=== PATIENT | male | born 1930 | race Caucasian/White ===

== ENCOUNTER 2017-04-06 07:58 | Inpatient (IN) | payer MEDICARE ==
[~2017-04-06] VITALS: Ht 182.9 cm; Wt 80.4 kg
[2017-04-06] MEDS ORDERED: SERT25TA PO (08:29)
[2017-04-06] MEDS ORDERED: AMLO5TAB2 PO (08:29)
[2017-04-06] MEDS ORDERED: ATOR40TA75 PO (08:29)
[2017-04-06] MEDS ORDERED: METF850T4 PO (08:29)
[2017-04-06] MEDS ORDERED: ARTISOL2 OP (08:29)
[2017-04-06] MEDS ORDERED: FLOM5CAP PO (08:29)
[2017-04-06] MEDS ORDERED: [UNRECOGNIZED DRUG - OTHER] PO (08:29)
[2017-04-06] MEDS ORDERED: OMEP40CA2 PO (08:29)
[2017-04-06] MEDS ORDERED: ARTIDRO3 OP (08:29)
[2017-04-06] MEDS ORDERED: ATOR1TAB19 PO (08:31)
[2017-04-06] MEDS ORDERED: ONGL10TA3 PO (08:34)
[2017-04-06] MEDS ORDERED: GLIP10TA6 PO (08:34)
[2017-04-06 08:41] LABS: BASO % 0.1 % (0.0-1.0); EOS # 0.1 K/mm3 (0.0-0.50); EOS % 1.3 % (0.0-3.0); LARGE UNSTAINED CELL # 0.1 K/mm3 (0.0-0.4); LARGE UNSTAINED CELL % 0.6 % (0.0-4.0); LYMPH # 0.5 K/mm3 (1.5-4.5); LYMPH % 4.9 % (24.0-44.0); MEAN CORPUSCULAR HEMOGLOBIN 30.1 pg (27.0-33.0); MEAN CORPUSCULAR HGB CONC 32.2 g/dl (32.0-36.5); MEAN CORPUSCULAR VOLUME 93.6 fl (80.0-96.0); MONO # 0.3 K/mm3 (0.0-0.8); MONO % 3.4 % (0.0-5.0); NEUTROPHILS # 8.3 K/mm3 (1.8-7.7); NEUTROPHILS % 89.7 % (36.0-66.0); PLATELET COUNT, AUTOMATED 169 k/mm3 (150-450); RED CELL DISTRIBUTION WIDTH 13.4 % (11.5-14.5); WHITE BLOOD COUNT 9.3 K/mm3 (4.0-10.0)
[2017-04-06] MEDS ORDERED: methylPREDNISolone INJ 125 MG/2 ML VIAL (J2930) IV ONE (08:45)
[2017-04-06] MEDS ORDERED: ALBUTEROL SULFATE 2.5 MG/0.5 ML INH NEB SOLN INH ONE (08:45)
[2017-04-06] MEDS ORDERED: IPRATROPIUM 0.5MG/ALBUTEROL 2.5MG INH SOL UD 3ML (DUONEB)(J7620) NEB ONE (08:45)
[2017-04-06] MEDS: ENOXAPARIN 40 MG/0.4 ML SYRINGE (J1650) SC SCH (09:00)
[2017-04-06] MEDS: SENOKOT S TAB PO SCH ×2 (09:00→21:08)
[2017-04-06 09:02] LABS: ALKALINE PHOSPHATASE 91 U/L (45-117); ALT/SGPT 21 U/L (12-78); AST/SGOT 16 U/L (15-37); BILIRUBIN,DIRECT 0.2 MG/DL (0.0-0.2); BILIRUBIN,TOTAL 0.6 MG/DL (0.2-1.0); BLOOD UREA NITROGEN 26 MG/DL (7-18); CALCIUM LEVEL 7.3 MG/DL (8.8-10.2); CARBON DIOXIDE LEVEL 24 MEQ/L (21-32); CHLORIDE LEVEL 107 MEQ/L (98-107); CREATININE FOR GFR 1.53 MG/DL (0.70-1.30); FREE T4 0.88 NG/DL (0.76-1.46); GLUCOSE, FASTING 257 MG/DL (83-110); POTASSIUM SERUM 4.3 MEQ/L (3.5-5.1); TOTAL PROTEIN 6.9 GM/DL (6.4-8.2)
[2017-04-06 09:08] LABS: ABG BASE EXCESS -3.1 (-2.0-2.0); ABG HCO3 21.6 MEQ/L (22.0-26.0); ABG PARTIAL PRESSURE CO2 37.2 mmHg (35.0-45.0); ABG PARTIAL PRESSURE O2 80.1 mmHg (75.0-100.0); ABG STANDARD HCO3 21.8 MEQ/L (22.0-26.0); ABG TOTAL CO2 22.8 MEQ/L (23.0-31.0); ABG pH (ARTERIAL) 7.382 UNITS (7.350-7.450)
--- NOTE | 2017-04-06 09:09 | REP ---
Clinical: Chest pain . Comparison: 01/30/2015 . Findings: The mediastinum and cardiac silhouette are stable and within normal limits for portable technique. The lung martinez are clear without acute consolidation, effusion, or pneumothorax. Skeletal structures are intact. Impression: No acute cardiopulmonary process appreciated. Signed by Easton Ba MD 04/06/2017 09:00 A
[2017-04-06 09:15] LABS: INR 1.09
[2017-04-06] MEDS ORDERED: FUROSEMIDE 20 MG/2 ML VIAL (J1940) IV ONE (09:30)
[2017-04-06 09:53] LABS: ANION GAP 11 MEQ/L (8-16); SODIUM LEVEL 142 MEQ/L (136-145)
[2017-04-06 09:54] LABS: ALBUMIN 3.3 GM/DL (3.2-5.2); ALBUMIN/GLOBULIN RATIO 0.92 (1.00-1.93)
[2017-04-06] MEDS ORDERED: ONDANSETRON 4MG/2ML VIAL (J2405) IV PRN (10:00)
[2017-04-06] MEDS ORDERED: FUROSEMIDE 40 MG/4 ML VIAL (J1940) IV ONE (10:00)
[2017-04-06] MEDS ORDERED: RAMI10CA PO (10:05)
[2017-04-06] MEDS ORDERED: VITA100066 PO (10:05)
[2017-04-06] MEDS ORDERED: ARTI99.0 OU (10:05)
[2017-04-06] MEDS ORDERED: AMLO10TA2 PO (10:05)
[2017-04-06] MEDS ORDERED: OMEP20CA3 PO (10:05)
[2017-04-06] MEDS ORDERED: ATOR1TAB21 PO (10:05)
[2017-04-06] MEDS ORDERED: SERT50TA PO (10:05)
[2017-04-06] MEDS ORDERED: PRESCAP6 PO (10:05)
[2017-04-06] MEDS ORDERED: METF750T PO (10:11)
[2017-04-06] MEDS ORDERED: GLUCOSE 4 GM CHEW TABLET PO PRN (13:45)
[2017-04-06] MEDS ORDERED: GLUCAGON FOR INJ 1 MG VIAL (J1610) SC PRN (13:45)
[2017-04-06] MEDS ORDERED: DEXTROSE 50% 50 ML SYRINGE IV PRN (13:45)
[2017-04-06 14:00] VITALS: BP 199/95
[2017-04-06 14:25] VITALS: BP 163/77
[2017-04-06] MEDS: FUROSEMIDE 40 MG/4 ML VIAL (J1940) IV SCH (16:10)
--- NOTE | 2017-04-06 16:13 | HPE ---
DATE OF ADMISSION: 04/06/2017 PRIMARY CARE PROVIDER: 's Administration, Dr. Ryder CHIEF COMPLAINT: Shortness of breath for one day, chest tightness once last night and increasing leg swelling for 2 weeks. PAST MEDICAL HISTORY: 1. Diabetes. 2. Hypertension. 3. Hyperlipidemia. 4. Chronic kidney disease stage III. 5. Coronary artery disease with history of myocardial infarction in the past. 6. Benign prostatic hypertrophy (BPH). HISTORY OF PRESENT ILLNESS: This is an 86-year-old male who presented to the hospital with slowing increasing leg swelling for over the past two weeks and sudden onset shortness of breath for 1 day. He also complained of one episode of chest pressure, which lasted for a few minutes and then resolved by itself last night. He denied any cough. Denied any dizziness or lightheadedness. Denied any diaphoresis. Denied any nausea or vomiting or abdominal pain. He did complain also of some intermittent palpitations, but this morning he did not have any further palpitations. In the emergency room, he had blood work done, which showed that he has chronic kidney disease with a baseline creatinine of 1.5. He was also noted to be anemic with a hemoglobin of 9. Initially on presentation, he was wheezing and short of breath so he received nebulizers and steroids with improvement in his symptoms. He also received 60 mg of IV Lasix in the emergency room. His chest x-ray showed mild pulmonary venous congestion, so the patient was admitted to the hospitalist service with the diagnosis of congestive heart failure (CHF). PAST SURGICAL HISTORY: Right inguinal hernia repair. SOCIAL HISTORY: The patient is a former smoker. Does not abuse alcohol or recreational drugs. The patient lives with a friend. Used to live in [facility] for three years and for the past 1 month living with a friend. ALLERGIES: ASPIRIN, PENICILLIN. REVIEW OF SYSTEMS: All ten-point review of systems is negative except for those mentioned in the history of present illness. PHYSICAL EXAMINATION: VITAL SIGNS: Temperature 98.3, pulse 82, respiratory rate 27, blood pressure 184/94, pulse oximetry 92% with 2 liters nasal cannula. GENERAL: The patient is awake, alert, oriented times three. Lying down in bed. In no acute distress. HEENT: Normocephalic, atraumatic. Moist mucous membranes. Anicteric eyes. CHEST: Clear to auscultation. CARDIOVASCULAR: S1, S2. Irregular. Rate normal. No rub, murmur or gallop. ABDOMEN: Soft, nontender. Bowel sounds present. EXTREMITIES: 4+ right pedal edema. LABORATORY DATA: WBC 9.3, hemoglobin 9, platelets 169. Sodium 142, potassium 4.3, chloride 107, bicarbonate 24, BUN 26, creatinine 1.53, glucose 257, calcium 7.3. Liver function tests are normal. Cardiac enzymes show troponin of 0.45. BNP 229. TSH of 5.16. Coagulation studies are normal. Blood gas shows a pH of 7.38, PCO2 of 37, PO2 80. ASSESSMENT AND PLAN: This is an 86-year-old male admitted for possible congestive heart failure (CHF). PLAN: 1. Congestive heart failure (CHF). We will get echocardiogram. We will start the patient on Lasix IV twice a day, oxygen to maintain saturations over 90 with a carbohydrate consistent diet and with fluid restriction of 1.5 liters, daily weights, and intake and output monitoring. 2. Diabetes. We will continue the patient on glipizide; however, we will hold metformin and start the patient on sliding scale insulin. 3. Hypertension. We will continue the patient on ramipril and amlodipine. 4. Hyperlipidemia. We will continue with atorvastatin. 5. Benign prostatic hypertrophy (BPH) . We will continue with Flomax. 6. Chronic kidney disease stage III. We will continue to monitor. BUN and creatinine, at present, look stable. 7. New onset atrial fibrillation. Rate is controlled at this point. We will get an echocardiogram. We will start the patient on oral anticoagulants after discussion. 8. Deep vein thrombosis (DVT) prophylaxis has been ordered.
[2017-04-06] MEDS ORDERED: amLODIPine 5 MG TAB PO ONE (16:15)
[2017-04-06] MEDS ORDERED: RAMIPRIL 5 MG CAP PO ONE (16:15)
[2017-04-06] MEDS: HumaLOG INSULIN (NovoLOG) PER UNIT SC SCH ×2 (16:47→21:08)
[2017-04-06 17:33] VITALS: BP 172/74
--- NOTE | 2017-04-06 19:34 | ECGEPIP ---
Stationary ECG Study 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
[2017-04-06 20:28] VITALS: BP 150/58
[2017-04-06] MEDS: TAMSULOSIN 0.4 MG CAP PO SCH (21:07)
[2017-04-06 23:59] VITALS: BP 138/62
[2017-04-07] VITALS (9 sets, daily range): BP systolic 126–187; BP diastolic 60–86
[2017-04-07 05:18] LABS: BASO % 0.1 % (0.0-1.0); EOS % 0.4 % (0.0-3.0); LARGE UNSTAINED CELL # 0.1 K/mm3 (0.0-0.4); LARGE UNSTAINED CELL % 0.5 % (0.0-4.0); LYMPH # 0.7 K/mm3 (1.5-4.5); LYMPH % 5.5 % (24.0-44.0); MEAN CORPUSCULAR HGB CONC 32.8 g/dl (32.0-36.5); MEAN CORPUSCULAR VOLUME 91.4 fl (80.0-96.0); MONO # 0.4 K/mm3 (0.0-0.8); MONO % 3.2 % (0.0-5.0); NEUTROPHILS # 10.7 K/mm3 (1.8-7.7); NEUTROPHILS % 90.4 % (36.0-66.0); PLATELET COUNT, AUTOMATED 159 k/mm3 (150-450); RED CELL DISTRIBUTION WIDTH 13.6 % (11.5-14.5); WHITE BLOOD COUNT 11.8 K/mm3 (4.0-10.0)
[2017-04-07 05:34] LABS: CALCIUM LEVEL 7.8 MG/DL (8.8-10.2); CREATININE FOR GFR 1.64 MG/DL (0.70-1.30); GLOMERULAR FILTRATION RATE 42.4 (>35); POTASSIUM SERUM 4.4 MEQ/L (3.5-5.1)
[2017-04-07] MEDS ORDERED: amLODIPine 10 MG TAB PO ONE (06:15)
[2017-04-07] MEDS ORDERED: amLODIPine 5 MG TAB PO ONE (06:26)
[2017-04-07] MEDS: HumaLOG INSULIN (NovoLOG) PER UNIT SC SCH ×4 (07:36→20:51)
[2017-04-07] MEDS ORDERED: RAMIPRIL 5 MG CAP PO SCH (09:00)
[2017-04-07] MEDS: glipiZIDE 10 MG TAB PO SCH (09:33)
[2017-04-07] MEDS: ATORVASTATIN 20 MG TAB PO SCH (09:33)
[2017-04-07] MEDS: SENOKOT S TAB PO SCH ×2 (09:34→20:48)
[2017-04-07] MEDS: SERTRALINE HCL 50 MG TAB PO SCH (09:34)
[2017-04-07] MEDS: OMEPRAZOLE 20 MG CAP PO SCH (09:34)
[2017-04-07] MEDS: FUROSEMIDE 40 MG/4 ML VIAL (J1940) IV SCH (09:35)
[2017-04-07] MEDS: ENOXAPARIN 40 MG/0.4 ML SYRINGE (J1650) SC SCH (09:35)
--- NOTE | 2017-04-07 11:54 | IPNPDOC ---
Subjective Date Seen The patient was seen on 04/07/17. Subjective Chief Complaint/HPI The patient is a 86-year-old male admitted with a reason for visit of Atrial Fibrillation New Onset,Chf. 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 Objective Physical Examination General Exam: Positive: Alert, Cooperative, No Acute Distress Eye Exam: Positive: PERRLA, Conjunctiva & lids normal, EOMI, Negative: Sclera icteric ENT Exam: Positive: Atraumatic, Mucous membr. moist/pink, Pharynx Normal Neck Exam: Positive: Supple, Negative: JVD, thyromegaly Chest Exam: Positive: Clear to auscultation, Normal air movement Heart Exam: Positive: Rate Normal, Irregular Rhythm, Normal S1, Normal S2 Telemetry: Positive: Atrial fibrillation Abdomen Exam: Positive: Normal bowel sounds, Soft, Negative: Tenderness, Hepatospenomegaly Extremity Exam: Positive: Edema, Negative: Clubbing, Cyanosis, Normal pulses, Tenderness, Swelling, Other Assessment /Plan Problems (1) Congestive heart failure Status: Acute Problem Text: will get echo. will continue with iv lasix , fluid restriction and i/os. (2) Atrial fibrillation, new onset Status: Acute Problem Text: rate controlled will get new ekg consider oral anticoagulation . patient thinking about it. (3) Elevated troponin Status: Acute Problem Text: possibly due to chf, afib and ckd will repeat ekg (4) BPH (benign prostatic hyperplasia) Status: Chronic (5) Hyperlipidemia Status: Chronic (6) Hypertension Status: Chronic (7) Diabetes Status: Chronic (8) CKD (chronic kidney disease), stage III Status: Chronic (9) CAD (coronary artery disease) Status: Chronic (10) Anemia Status: Acute Problem Text: will check iron studies, folate , b 12. will check fecal occult blood and spep and esr possible also has anemia of chronic disease. Plan/VTE VTE Prophylaxis Ordered?: Yes VS, I&O, 24H, Fishbone Vital Signs/I&O Vital Signs Date Time Temp Pulse Resp B/P (MAP) Pulse Ox O2 Delivery O2 Flow Rate FiO2 04/07/17 08:00 98.5 66 18 164/76 (105) 97 Nasal Cannula 2.0 04/06/17 08:40 96 I&O- Last 24 Hours up to 6 AM 04/07/17 06:00 Intake Total 780 ml Output Total 450 ml Balance 330 ml Laboratory Data 24H LABS Laboratory Tests 2 04/06/17 16:05: Total Creatine Kinase 229, Creatine Kinase MB 6.3H, Creatine Kinase MB Relative Index 2.75, Troponin I 0.44H 04/07/17 00:07: Total Creatine Kinase 240, Creatine Kinase MB 6.8H, Creatine Kinase MB Relative Index 2.83, Troponin I 0.42H 04/07/17 04:41: White Blood Count 11.8H, Red Blood Count 2.83L, Hemoglobin 8.5L, Hematocrit 25.8L, Mean Corpuscular Volume 91.4, Mean Corpuscular Hemoglobin 30.0, Mean Corpuscular Hemoglobin Concent 32.8, Red Cell Distribution Width 13.6, Platelet Count 159, Neutrophils (%) (Auto) 90.4H, Lymphocytes (%) (Auto) 5.5L, Monocytes (%) (Auto) 3.2, Eosinophils (%) (Auto) 0.4, Basophils (%) (Auto) 0.1, Neutrophils # (Auto) 10.7H, Lymphocytes # (Auto) 0.7L, Monocytes # (Auto) 0.4, Eosinophils # (Auto) 0.0, Basophils # (Auto) 0.0, Large Unclassified Cells % 0.5 , Large Unclassified Cells # 0.1, Anion Gap 9, Glomerular Filtration Rate 42.4, Blood Urea Nitrogen 36H, Creatinine 1.64H, Sodium Level 143, Potassium Level 4.4 , Chloride Level 106, Carbon Dioxide Level 28, Calcium Level 7.8L 04/07/17 07:58: Total Creatine Kinase 248, Creatine Kinase MB 6.0H, Creatine Kinase MB Relative Index 2.41, Troponin I 0.39H CBC/BMP Laboratory Tests 04/07/17 04:41 Red Blood Count 2.83 L, Mean Corpuscular Volume 91.4, Mean Corpuscular Hemoglobin 30.0, Mean Corpuscular Hemoglobin Concent 32.8, Red Cell Distribution Width 13.6, Neutrophils (%) (Auto) 90.4 H, Lymphocytes (%) (Auto) 5.5 L, Monocytes (%) (Auto) 3.2, Eosinophils (%) (Auto) 0.4, Basophils (%) (Auto ) 0.1, Neutrophils # (Auto) 10.7 H, Lymphocytes # (Auto) 0.7 L, Monocytes # ( Auto) 0.4, Eosinophils # (Auto) 0.0, Basophils # (Auto) 0.0, Calcium Level 7.8 L Microbiology Microbiology 04/06/17 Blood Culture - Preliminary, Resulted No growth after 24 hours . All specim... 04/06/17 Blood Culture - Preliminary, Resulted No growth after 24 hours . All specim... JAMES MCCLOUD MD Apr 07, 2017 11:54
[2017-04-07 12:18] LABS: FERRITIN 181 NG/ML (26-388); PERCENT SATURATION 14.3 % (19.7-50.0); TOTAL IRON BINDING CAPACITY 245 UG/DL (250-450); TOTAL PROTEIN 6.4 GM/DL (6.4-8.2)
--- NOTE | 2017-04-07 13:36 | ECGEPIP ---
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 Rule out prior septal injury. Nonspecific ST/T-wave abnormalities. Not significantly changed from the previous day. Electronically Signed On 04-07-2017 13:36:41 EDT by Royer Meek
--- NOTE | 2017-04-07 13:45 | ECGEPIP ---
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 Isolated wider complex ventricular beat-PVCs versus aberrant conduction. Slow precordial R-wave progression; body habitus versus pulmonary disease. Rule out prior septal injury. Nonspecific ST/T-wave abnormalities No change from earlier this same day. Electronically Signed On 04-07-2017 13:45:09 EDT by Royer Meek
[2017-04-07] MEDS: TAMSULOSIN 0.4 MG CAP PO SCH (20:48)
[2017-04-07] MEDS: amLODIPine 5 MG TAB PO SCH (20:48)
[2017-04-08 04:00] VITALS: BP 170/66
[2017-04-08 05:19] VITALS: BP 152/62
[2017-04-08 05:44] LABS: BASO % 0.2 % (0.0-1.0); EOS # 0.2 K/mm3 (0.0-0.50); LARGE UNSTAINED CELL # 0.1 K/mm3 (0.0-0.4); LARGE UNSTAINED CELL % 1.2 % (0.0-4.0); LYMPH # 1.4 K/mm3 (1.5-4.5); LYMPH % 15.1 % (24.0-44.0); MEAN CORPUSCULAR HEMOGLOBIN 30.9 pg (27.0-33.0); MEAN CORPUSCULAR HGB CONC 33.2 g/dl (32.0-36.5); MEAN CORPUSCULAR VOLUME 93.3 fl (80.0-96.0); MONO # 0.5 K/mm3 (0.0-0.8); MONO % 4.9 % (0.0-5.0); NEUTROPHILS # 6.9 K/mm3 (1.8-7.7); NEUTROPHILS % 76.5 % (36.0-66.0); PLATELET COUNT, AUTOMATED 164 k/mm3 (150-450); RED CELL DISTRIBUTION WIDTH 13.5 % (11.5-14.5)
[2017-04-08 05:56] LABS: CALCIUM LEVEL 7.8 MG/DL (8.8-10.2); CREATININE FOR GFR 1.69 MG/DL (0.70-1.30); MAGNESIUM LEVEL 1.3 MG/DL (1.8-2.4); POTASSIUM SERUM 3.8 MEQ/L (3.5-5.1)
[2017-04-08] MEDS: MAG SULF 1GM/100ML (MAG RUN) 1 GM in APPROPRIATE DILUENT 1 EA IV SCH ×2 (06:37→07:47)
[2017-04-08 07:15] VITALS: BP 150/80
[2017-04-08 07:35] LABS: REASON FOR REVIEW COMPREHENSIVE REVIEW
[2017-04-08 07:38] LABS: RETIC HEMOGLOBIN CONTENT CHr 29.8 PG (24-36); RETICULOCYTE ABSOLUTE ADVIA212 57 x10(9)/L (17-77)
--- NOTE | 2017-04-08 07:41 | ECHO ---
DATE OF PROCEDURE: 04/07/2017 HEIGHT: 72 inches WEIGHT: 179 pounds BODY SURFACE AREA : 2.0 meters squared REFERRING PHYSICIAN: Dr. Charles. INDICATIONS: Congestive heart failure (CHF). Atrial fibrillation. MEASUREMENTS: 2D Measurements: RV - 4.6 cm LV - 5.3 cm Septum - 1.2 cm Posterior wall - 1.2 cm Aortic root 3.1 - cm LA - 5.1 cm LVEF - 65% Doppler Measurements: AV - 1.5 meters per second LVOT - 1.1 meters per second MV-E - 150 Early mitral deceleration time - 150 E prime 7.3, E/E prime ratio - 20.5 PV - 1.0 meters per second Pulmonary artery acceleration time - 98 milliseconds RVSP - 70 mmHg IVC - 2.4 cm COMMENTS: Underlying atrial fibrillation with controlled ventricular response. Prominently dilated left atrium but normal left ventricular size. Moderately dilated right ventricle and prominently dilated right atrium. LV wall thickness was upper limits of normal to borderline increased. On real-time imaging from the parasternal and projections left ventricular wall motion was symmetrical and hyperkinetic. Right ventricular wall motion appeared to be normal. Mitral annular calcification with marginal thickening of the mitral leaflets but adequate leaflet excursion and no posterior systolic buckling. Three equal size aortic cusps with mildly thickened cusp edges but adequate cusp separation. Normal aortic root size. No apparent intracardiac mass or pericardial effusion. Color flow Doppler study taken from the parasternal and apical projection showed trace aortic, moderate mitral and moderately severe and tricuspid insufficiency. Guided continuous wave Doppler of his aortic valve showed a normal peak systolic velocity against LV outflow tract obstruction. Pulsed and continuous wave Doppler of his LV inflow tract taken for the apical four-chamber projection showed normal diastolic filling velocities against LV inflow tract obstruction. There was only early diastolic/passive filling pattern as you would expect with atrial fibrillation. Current estimated mean left atrial pressure was elevated. Pulsed and continuous wave Doppler of his pulmonary trunk showed a normal peak systolic velocity against RV outflow tract obstruction. His pulmonary artery acceleration time was abbreviated consistent with a least mildly elevated pulmonary vascular resistance. Guided continuous wave Doppler of his tricuspid valve allowed our estimation of his right ventricular systolic pressure (severely increased). His inferior vena cava was at least mild to moderately dilated with markedly reduced respiratory collapse consistent with an elevated central venous pressure. CONCLUSIONS: Borderline concentric left ventricle hypertrophy with preserved global resting left ventricular systolic function. No localized wall motion abnormality to suggest prior infarction. Prominently dilated left atrium with Doppler evidence to suggest an elevated mean left atrial pressure. Moderately dilated right heart chambers with normal wall motion with Doppler evidence of severe pulmonary hypertension. Mild to moderately dilated inferior vena cava with absent respiratory collapse consistent with an elevated central venous pressure. Aortic valvular sclerosis without stenosis and only trace insufficiency. Mitral annular calcification and degenerative change of the mitral valvular apparatus without inflow tract obstruction but moderate insufficiency.
[2017-04-08] MEDS: HumaLOG INSULIN (NovoLOG) PER UNIT SC SCH ×4 (07:48→20:39)
[2017-04-08] MEDS: SENOKOT S TAB PO SCH ×2 (08:52→20:38)
[2017-04-08] MEDS: OMEPRAZOLE 20 MG CAP PO SCH (08:52)
[2017-04-08] MEDS: amLODIPine 5 MG TAB PO SCH ×2 (08:52→20:39)
[2017-04-08] MEDS: ATORVASTATIN 20 MG TAB PO SCH (08:52)
[2017-04-08] MEDS: SERTRALINE HCL 50 MG TAB PO SCH (08:52)
[2017-04-08] MEDS: glipiZIDE 10 MG TAB PO SCH (08:52)
[2017-04-08] MEDS: FUROSEMIDE 40 MG/4 ML VIAL (J1940) IV SCH (08:53)
[2017-04-08] MEDS: ENOXAPARIN 40 MG/0.4 ML SYRINGE (J1650) SC SCH (08:53)
[2017-04-08] MEDS ORDERED: amLODIPine 10 MG TAB PO SCH (09:00)
--- NOTE | 2017-04-08 10:36 | IPNPDOC ---
Date Seen The patient was seen on 04/08/17. Progress Note SUBJECTIVE: Patient is a 86-year-old male with new onset atrial fibrillation and CHF exacerbation. Patient states that he is doing better today. He reports ambulation to the restroom. No acute events overnight. Patient states that he had a prior bleeding episode when on anticoagulation "a long time ago." Reports a nosebleed, but no hemoptysis, hematemesis, melena, hematochezia. OBJECTIVE PHYSICAL EXAMINATION: VITAL SIGNS: Please see below. GENERAL: Alert and pleasant male laying in bed during my evaluation, no acute distress HEENT: Atraumatic, normocephalic, PERRL, EOMI, oral mucosa appears pink and moist, nasal septum appears midline, nares are patent CARDIOVASCULAR: Irregularly irregular heart rate and rhythm, normal S1 and S2, no murmur, rub, click RESPIRATORY: Clear to auscultation bilaterally, adequate inspiratory and expiratory airway excursion, no wheeze, rhonchi, crackles ABDOMINAL: Soft, non-tender, non-distended, bowel sounds appreciated EXTREMITIES: +1 pitting edema noted around the ankles bilaterally, peripheral pulses appreciated bilaterally, equal, symmetrical, +2/4 NEUROLOGICAL: CN II-XII grossly intact PSYCHOLOGICAL: Alert and conversant LABORATORY DATA: Please see below. MICROBIOLOGY: Please see below. Echocardiogram: CONCLUSIONS: Borderline concentric left ventricle hypertrophy with preserved global resting left ventricular systolic function. No localized wall motion abnormality to suggest prior infarction. Prominently dilated left atrium with Doppler evidence to suggest an elevated mean left atrial pressure. Moderately dilated right heart chambers with normal wall motion with Doppler evidence of severe pulmonary hypertension. Mild to moderately dilated inferior vena cava with absent respiratory collapse consistent with an elevated central venous pressure. Aortic valvular sclerosis without stenosis and only trace insufficiency. Mitral annular calcification and degenerative change of the mitral valvular apparatus without inflow tract obstruction but moderate insufficiency. DVT prophylaxis ordered?: Lovenox 40mg SC daily ASSESSMENT AND PLAN: This is a 86-year-old male with new onset atrial fibrillation and CHF exacerbation. PROBLEMS: 1. New onset atrial fibrillation: Rate controlled, echocardiogram results listed above. Patient has agreed to anticoagulation. Initiating Eliquis 2.5mg BID secondary to CKD. 2. Congestive heart failure exacerbation: Greatly improved. Lungs are clear. + 1 pitting edema present around the ankles bilaterally. Continue Lasix, fluid restriction, and I/Os. 3. Elevated troponin: EKG shows atrial fibrillation with PVC. No evidence of MA. 4. BPH: Continue on current home medication regimen of Flomax. 5. Diabetes: Continue patient on glipizide, sliding scale insulin, fingersticks AC/HS, hypoglycemic protocol. 6. Hypertension: Continue patient on amlodipine. 7. Dyslipidemia: Continue patient on current home medication regimen. 8. CKD, stage III: Stable. 9. Anemia: Iron studies appears to indicated anemia of chronic disease. Obtaining peripheral smear. B12 and folate are pending. DISPOSITION: Currently remains hospitalized. Continued improvements noted. PFS consult. Potential for d/c in 24-48 hours. VS, I&O, 24H, Fishbone Vital Signs/I&O Vital Signs Date Time Temp Pulse Resp B/P (MAP) Pulse Ox O2 Delivery O2 Flow Rate FiO2 04/08/17 08:52 75 150/80 04/08/17 07:53 Nasal Cannula 2.0 04/08/17 07:15 97.5 20 97 04/06/17 08:40 96 I&O- Last 24 Hours up to 6 AM 04/08/17 05:59 Intake Total 1200 ml Output Total 750 ml Balance 450 ml Laboratory Data 24H LABS Laboratory Tests 2 04/07/17 11:53: Erythrocyte Sedimentation Rate 48H 04/08/17 04:30: Differential Slide Review Report, Differential Pathologist's Review COMPREHENSIVE REVIEW, Peripheral Blood Smear Path Consult PERIPHERAL SMEAR 04/08/17 04:45: White Blood Count 9.0, Red Blood Count 3.10L, Hemoglobin 9.6L, Hematocrit 28.9L , Mean Corpuscular Volume 93.3, Mean Corpuscular Hemoglobin 30.9, Mean Corpuscular Hemoglobin Concent 33.2, Red Cell Distribution Width 13.5, Platelet Count 164, Neutrophils (%) (Auto) 76.5H, Lymphocytes (%) (Auto) 15.1L, Monocytes (%) (Auto) 4.9, Eosinophils (%) (Auto) 2.0, Basophils (%) (Auto) 0.2, Neutrophils # (Auto) 6.9, Lymphocytes # (Auto) 1.4L, Monocytes # (Auto) 0.5, Eosinophils # (Auto) 0.2, Basophils # (Auto) 0.0, Large Unclassified Cells % 1.2 , Large Unclassified Cells # 0.1, Absolute Reticulocyte Count 57, Percent Reticulocyte Count 2.00H, Reticulocyte Hgb Content (CHr) 29.8, Anion Gap 9, Glomerular Filtration Rate 41.0, Blood Urea Nitrogen 43H, Creatinine 1.69H, Sodium Level 145, Potassium Level 3.8, Chloride Level 105, Carbon Dioxide Level 31, Calcium Level 7.8L, Magnesium Level 1.3L CBC/BMP Laboratory Tests 04/08/17 04:45 Red Blood Count 3.10 L, Mean Corpuscular Volume 93.3, Mean Corpuscular Hemoglobin 30.9, Mean Corpuscular Hemoglobin Concent 33.2, Red Cell Distribution Width 13.5, Neutrophils (%) (Auto) 76.5 H, Lymphocytes (%) (Auto) 15.1 L, Monocytes (%) (Auto) 4.9, Eosinophils (%) (Auto) 2.0, Basophils (%) ( Auto) 0.2, Neutrophils # (Auto) 6.9, Lymphocytes # (Auto) 1.4 L, Monocytes # ( Auto) 0.5, Eosinophils # (Auto) 0.2, Basophils # (Auto) 0.0, Calcium Level 7.8 L Microbiology Microbiology 04/06/17 Blood Culture - Preliminary, Resulted No Growth after 48 hours. All Specime... 04/06/17 Blood Culture - Preliminary, Resulted No Growth after 48 hours. All Specime... 04/07/17 Stool Occult Blood (KARIN) - Final, Complete DONALD LYON-Shiela Apr 08, 2017 10:36
[2017-04-08 10:55] LABS: VITAMIN B12 LEVEL 208 PG/ML (247-911)
[2017-04-08 10:56] LABS: FOLATE 7.5 NG/ML (>5.4)
[2017-04-08 12:00] VITALS: BP 140/70
[2017-04-08] MEDS: APIXABAN 2.5 MG TAB (ELIQUIS) PO SCH ×2 (14:18→20:38)
[2017-04-08 16:00] VITALS: BP 142/70
[2017-04-08 20:14] VITALS: BP 159/77
[2017-04-08] MEDS: TAMSULOSIN 0.4 MG CAP PO SCH (20:38)
[2017-04-09 06:00] VITALS: BP 138/78
[2017-04-09 07:22] LABS: BASO % 0.1 % (0.0-1.0); EOS # 0.3 K/mm3 (0.0-0.50); EOS % 3.1 % (0.0-3.0); LARGE UNSTAINED CELL # 0.1 K/mm3 (0.0-0.4); LARGE UNSTAINED CELL % 0.9 % (0.0-4.0); MEAN CORPUSCULAR HEMOGLOBIN 30.7 pg (27.0-33.0); MEAN CORPUSCULAR HGB CONC 33.6 g/dl (32.0-36.5); MEAN CORPUSCULAR VOLUME 91.4 fl (80.0-96.0); MONO # 0.4 K/mm3 (0.0-0.8); MONO % 4.8 % (0.0-5.0); NEUTROPHILS % 80.1 % (36.0-66.0); PLATELET COUNT, AUTOMATED 191 k/mm3 (150-450); RED CELL DISTRIBUTION WIDTH 13.4 % (11.5-14.5); WHITE BLOOD COUNT 8.7 K/mm3 (4.0-10.0)
[2017-04-09 07:43] LABS: CREATININE FOR GFR 1.5 MG/DL (0.70-1.30); POTASSIUM SERUM 3.9 MEQ/L (3.5-5.1)
[2017-04-09] MEDS: HumaLOG INSULIN (NovoLOG) PER UNIT SC SCH ×4 (07:57→20:53)
[2017-04-09] MEDS: ENOXAPARIN 40 MG/0.4 ML SYRINGE (J1650) SC SCH (07:57)
[2017-04-09] MEDS: amLODIPine 5 MG TAB PO SCH ×2 (07:58→21:06)
[2017-04-09] MEDS: glipiZIDE 10 MG TAB PO SCH (07:58)
[2017-04-09] MEDS: APIXABAN 2.5 MG TAB (ELIQUIS) PO SCH ×2 (07:58→21:06)
[2017-04-09] MEDS: OMEPRAZOLE 20 MG CAP PO SCH (07:58)
[2017-04-09] MEDS: FUROSEMIDE 40 MG/4 ML VIAL (J1940) IV SCH (07:59)
[2017-04-09] MEDS: SERTRALINE HCL 50 MG TAB PO SCH (07:59)
[2017-04-09] MEDS: SENOKOT S TAB PO SCH ×2 (07:59→21:06)
[2017-04-09] MEDS: ATORVASTATIN 20 MG TAB PO SCH (07:59)
--- NOTE | 2017-04-09 11:55 | IPNPDOC ---
Subjective Date Seen The patient was seen on 04/09/17. Subjective Chief Complaint/HPI The patient is a 86-year-old male admitted with a reason for visit of Atrial Fibrillation New Onset,Chf. Events since last encounter feeling much better, sob has improved, not requiring any oxygen now. no chest pain , no cough , no abdominal pain , no nausea or vomiting or diarrhea. Objective Physical Examination General Exam: Positive: Alert, Cooperative, No Acute Distress Eye Exam: Positive: PERRLA, Conjunctiva & lids normal, EOMI, Negative: Sclera icteric ENT Exam: Positive: Atraumatic, Mucous membr. moist/pink, Pharynx Normal Neck Exam: Positive: Supple, Negative: JVD, thyromegaly Chest Exam: Positive: Clear to auscultation, Normal air movement Heart Exam: Positive: Rate Normal, Irregular Rhythm, Normal S1, Normal S2 Telemetry: Positive: Atrial fibrillation Abdomen Exam: Positive: Normal bowel sounds, Soft, Negative: Tenderness, Hepatospenomegaly Extremity Exam: Positive: Edema, Negative: Clubbing, Cyanosis, Normal pulses, Tenderness, Swelling, Other Assessment /Plan Problems (1) Congestive heart failure Status: Acute Problem Text: CHF with preserved systolic function . EF of 65%, Has right sided heart failure acute on chronic and severe pulmonary hypertension. will continue with iv lasix , fluid restriction and i/os. (2) Atrial fibrillation, new onset Status: Acute Problem Text: rate controlled will get new ekg started on eliquis (3) Elevated troponin Status: Acute Problem Text: possibly due to chf, afib and ckd (4) BPH (benign prostatic hyperplasia) Status: Chronic (5) Hyperlipidemia Status: Chronic (6) Hypertension Status: Chronic (7) Diabetes Status: Chronic (8) CKD (chronic kidney disease), stage III Status: Chronic (9) CAD (coronary artery disease) Status: Chronic (10) Anemia Status: Acute Problem Text: Has v b12 def will start on b12 inj. fecal occult blood negative Also has anemia of chronic kidney disease. Plan/VTE VTE Prophylaxis Ordered?: Yes VS, I&O, 24H, Fishbone Vital Signs/I&O Vital Signs Date Time Temp Pulse Resp B/P (MAP) Pulse Ox O2 Delivery O2 Flow Rate FiO2 04/09/17 07:58 75 138/78 04/09/17 06:00 98.6 16 96 Room Air 04/08/17 19:42 2.0 04/06/17 08:40 96 I&O- Last 24 Hours up to 6 AM 04/09/17 06:00 Intake Total 2000 ml Output Total 3250 ml Balance -1250 ml Laboratory Data 24H LABS Laboratory Tests 2 04/09/17 06:33: White Blood Count 8.7, Red Blood Count 3.16L, Hemoglobin 9.7L, Hematocrit 28.9L , Mean Corpuscular Volume 91.4, Mean Corpuscular Hemoglobin 30.7, Mean Corpuscular Hemoglobin Concent 33.6, Red Cell Distribution Width 13.4, Platelet Count 191, Neutrophils (%) (Auto) 80.1H, Lymphocytes (%) (Auto) 11.0L, Monocytes (%) (Auto) 4.8, Eosinophils (%) (Auto) 3.1H, Basophils (%) (Auto) 0.1 , Neutrophils # (Auto) 7.0, Lymphocytes # (Auto) 1.0L, Monocytes # (Auto) 0.4, Eosinophils # (Auto) 0.3, Basophils # (Auto) 0.0, Large Unclassified Cells % 0.9 , Large Unclassified Cells # 0.1, Anion Gap 6L, Glomerular Filtration Rate 47.0 , Blood Urea Nitrogen 35H, Creatinine 1.50H, Sodium Level 142, Potassium Level 3.9, Chloride Level 103, Carbon Dioxide Level 33H, Calcium Level 8.0L CBC/BMP Laboratory Tests 04/09/17 06:33 Red Blood Count 3.16 L, Mean Corpuscular Volume 91.4, Mean Corpuscular Hemoglobin 30.7, Mean Corpuscular Hemoglobin Concent 33.6, Red Cell Distribution Width 13.4, Neutrophils (%) (Auto) 80.1 H, Lymphocytes (%) (Auto) 11.0 L, Monocytes (%) (Auto) 4.8, Eosinophils (%) (Auto) 3.1 H, Basophils (%) ( Auto) 0.1, Neutrophils # (Auto) 7.0, Lymphocytes # (Auto) 1.0 L, Monocytes # ( Auto) 0.4, Eosinophils # (Auto) 0.3, Basophils # (Auto) 0.0, Calcium Level 8.0 L Microbiology Microbiology 04/06/17 Blood Culture - Preliminary, Resulted No Growth after 72 hours. All specime... 04/06/17 Blood Culture - Preliminary, Resulted No Growth after 72 hours. All specime... 04/07/17 Stool Occult Blood (KARIN) - Final, Complete JAMES MCCLOUD MD Apr 09, 2017 11:55
[2017-04-09 12:26] LABS: MAGNESIUM LEVEL 1.7 MG/DL (1.8-2.4)
[2017-04-09] MEDS: FOLIC ACID 1 MG TAB PO SCH (12:26)
[2017-04-09 12:46] LABS: ALBUMIN 3.49 GM/DL (3.29-5.55); ALBUMIN % 54.5 % (55.8-66.1); GAMMA GLOBULIN % 15.4 % (11.1-18.8)
[2017-04-09 14:00] VITALS: BP 139/88
[2017-04-09] MEDS: MAG SULF 1GM/100ML (MAG RUN) 1 GM in APPROPRIATE DILUENT 1 EA IV SCH ×2 (14:32→15:39)
[2017-04-09] MEDS: CYANOCOBALAMIN 1,000 MCG/ML VIAL (J3420) IM SCH (16:39)
[2017-04-09] MEDS: TAMSULOSIN 0.4 MG CAP PO SCH (21:06)
[2017-04-09 22:00] VITALS: BP 127/67
[2017-04-10 06:00] VITALS: BP 136/77
[2017-04-10 07:06] LABS: BASO % 0.1 % (0.0-1.0); EOS # 0.2 K/mm3 (0.0-0.50); EOS % 2.7 % (0.0-3.0); LARGE UNSTAINED CELL # 0.2 K/mm3 (0.0-0.4); LARGE UNSTAINED CELL % 2.1 % (0.0-4.0); LYMPH # 1.2 K/mm3 (1.5-4.5); LYMPH % 15.5 % (24.0-44.0); MEAN CORPUSCULAR HEMOGLOBIN 30.5 pg (27.0-33.0); MEAN CORPUSCULAR HGB CONC 33.4 g/dl (32.0-36.5); MEAN CORPUSCULAR VOLUME 91.4 fl (80.0-96.0); MONO # 0.5 K/mm3 (0.0-0.8); MONO % 5.8 % (0.0-5.0); NEUTROPHILS # 5.7 K/mm3 (1.8-7.7); NEUTROPHILS % 73.7 % (36.0-66.0); PLATELET COUNT, AUTOMATED 195 k/mm3 (150-450); RED CELL DISTRIBUTION WIDTH 12.9 % (11.5-14.5); WHITE BLOOD COUNT 7.7 K/mm3 (4.0-10.0)
[2017-04-10 07:24] LABS: CALCIUM LEVEL 8.3 MG/DL (8.8-10.2); CREATININE FOR GFR 1.52 MG/DL (0.70-1.30); GLOMERULAR FILTRATION RATE 46.3 (>35); MAGNESIUM LEVEL 2.4 MG/DL (1.8-2.4); POTASSIUM SERUM 3.8 MEQ/L (3.5-5.1)
[2017-04-10] MEDS: FUROSEMIDE 40 MG/4 ML VIAL (J1940) IV SCH (09:35)
[2017-04-10] MEDS: FOLIC ACID 1 MG TAB PO SCH (09:35)
[2017-04-10] MEDS: SERTRALINE HCL 50 MG TAB PO SCH (09:36)
[2017-04-10] MEDS: SENOKOT S TAB PO SCH (09:36)
[2017-04-10] MEDS: glipiZIDE 10 MG TAB PO SCH (09:36)
[2017-04-10] MEDS: ATORVASTATIN 20 MG TAB PO SCH (09:36)
[2017-04-10 09:37] VITALS: BP 136/77
[2017-04-10] MEDS: amLODIPine 5 MG TAB PO SCH (09:37)
[2017-04-10] MEDS: OMEPRAZOLE 20 MG CAP PO SCH (09:37)
[2017-04-10] MEDS: APIXABAN 2.5 MG TAB (ELIQUIS) PO SCH (09:37)
[2017-04-10] MEDS: HumaLOG INSULIN (NovoLOG) PER UNIT SC SCH ×2 (09:43→12:02)
[2017-04-10] MEDS: CYANOCOBALAMIN 1,000 MCG/ML VIAL (J3420) IM SCH (09:43)
[2017-04-10] MEDS ORDERED: FOLI1TAB4 PO (11:38)
[2017-04-10] MEDS ORDERED: LASI40TA PO (11:38)
[2017-04-10] MEDS ORDERED: ELIQ2.5T PO (11:38)
[2017-04-10] MEDS ORDERED: B-12100010 PO (11:38)
[2017-04-12 00:06] LABS: FREE KAPPA LIGHT CHAINS SERUM 31.3 mg/L (3.3-19.4); FREE LAMBDA LIGHT CHAINS SERUM 25.8 mg/L (5.7-26.3); KAPPA/LAMBDA RATIO SERUM 1.21 (0.26-1.65)
--- NOTE | 2017-04-15 16:17 | DSES ---
DATE OF ADMISSION: 04/06/2017 DATE OF DISCHARGE: 04/10/2017 PRIMARY CARE PROVIDER: [facility] ([facility]) [place]. DISCHARGE DIAGNOSES: 1. Congestive heart failure with preserved systolic function. 2. Acute on chronic right-sided heart failure. 3. Severe pulmonary hypertension. 4. New onset atrial fibrillation, rate controlled. 5. BPH. 6. Hyperlipidemia. 7. Elevated troponins due to congestive heart failure (CHF). 8. Chronic kidney disease stage III. 9. Diabetes. 10. Hypertension. 11. Coronary artery disease. 12. Severe vitamin B12 deficiency. 13. Chronic anemia. 14. 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 Needs to followup with snuff grinder and screener. DISCHARGE MEDICATIONS: - Lasix 40 mg by mouth daily - folic acid 1 mg by mouth daily - cyanocobalamin 1000 mcg by mouth daily - Eliquis 2.5 mg by mouth twice a day - amlodipine 5 mg by mouth daily - artificial tears - atorvastatin 10 mg by mouth daily - cholecalciferol 1000 units by mouth daily - glipizide 10 mg by mouth daily - metformin 750 mg by mouth twice a day - omeprazole 20 mg by mouth daily - PreserVision AREDS one capsule by mouth twice a day - ramipril 10 mg by mouth daily - Onglyza 2.5 mg by mouth daily - sertraline 25 mg by mouth daily - tamsulosin 0.4 mg by mouth daily HOSPITAL COURSE: This is an 86-year-old male who presented to the hospital with increasing swelling of the legs for 2 weeks, chest tightness, and shortness of breath for 1 day. Patient was found to have atrial fibrillation, rate controlled, in the emergency room and signs of congestive heart failure. Patient received 60 mg of IV Lasix in the emergency room with improvement in his symptoms so the patient was admitted into the hospital for congestive heart failure exacerbation. Patient underwent echocardiogram in the hospital which showed borderline left ventricular hypertrophy (LVH) with preserved left ventricular systolic function without any regional wall motion abnormality. There was severe pulmonary hypertension and features of right-sided heart failure as identified by moderately dilated inferior vena cava with absent respiratory collapse consistent with elevated central venous pressure. There was moderate mitral insufficiency. Diastolic function could not be estimated because of underlying atrial fibrillation. Patient was continued with IV diuresis with improvement in his symptoms. He initially required oxygen, however, he was gradually successfully weaned off oxygen with good diuresis. He was also noted to be severely anemic with a hemoglobin of 8.5 to 9. Workup for anemia revealed severe vitamin B12 deficiency as well as M-spike in the mid gamma region seen in serum protein electrophoresis. Subsequently, immunotyping was done in the serum and the urine. Urine immunotyping did not reveal any bands, chains, proteins. Immunotyping of the serum showed high IgG kappa. Free light chains ratios were normal at 1.2. Patient was diagnosed with a plasma cell disorder with IgG kappa M-spike in the gamma region. On the day of discharge, patient did not have any complaints, his vital signs were stable, and he was functionally at his baseline. PHYSICAL EXAMINATION: VITAL SIGNS: Temperature 98.3, pulse 77, respiratory rate 18, blood pressure 136/77, pulse oximetry 95% in room air. GENERAL: Patient awake, alert, oriented times three, sitting up in bed, in no acute distress. HEENT: Normocephalic, atraumatic. Moist mucous membranes. Anicteric eyes. CHEST: Clear to auscultation. CARDIOVASCULAR: S1, S2, irregular. There is a mild systolic murmur. ABDOMEN: Soft, nontender. Bowel sounds present. EXTREMITIES: No edema. LABORATORY DATA: WBC 7.7, hemoglobin 9.9, platelets 195. Sodium 141, potassium 3.8, chloride 103, bicarbonate 35, BUN 32, creatinine 1.5, glucose 151, calcium 8.3, magnesium 2.4. Serum protein electrophoresis showed M-spike in the mid gamma region of concentration 0.44 grams per dL, increased alpha1 and alpha2 fractions indicative of acute inflammation, relative hypoalbuminemia. Serum immunotyping showed IgG kappa band. Urine immunotyping was negative for any bands, chains, proteins. Vitu-mplrb-dzslwy ratio was normal. Coagulation studies were normal. Vitamin B12 level was 208, folate level 7.5, ferritin 181, transferrin saturation 14.3, iron 35. Troponins were 0.45 and then trended down to 0.39. Blood cultures negative. Stool occult blood negative. DISPOSITION: Patient is discharged home in a stable condition. DISCHARGE INSTRUCTIONS: Patient to followup with primary care provider in 1-2 weeks. Consistent carbohydrate diet. Fluid restriction 1500 mL in 24 hours. Activity as tolerated.
== END 2017-04-10 15:15 | disposition home or self-care (01) | DRG 293 ==
LOC: M ED 07:58 → M ED INP 09:48 → M PCU 17:18 → M MS4PR 04-08 19:33
PROVIDERS: ADMIT Internal Medicine Nephrology; ATTEND Internal Medicine Nephrology
DX: I11.0 Hypertensive heart disease with heart failure (principal); I50.21 Acute systolic (congestive) heart failure; N18.3 Chronic kidney disease, stage 3 (moderate); I48.91 Unspecified atrial fibrillation; E11.9 Type 2 diabetes mellitus without complications; N40.0 Benign prostatic hyperplasia without lower urinary tract symptoms; I25.10 Atherosclerotic heart disease of native coronary artery without angina pectoris; I25.2 Old myocardial infarction; E78.5 Hyperlipidemia, unspecified; Z87.891 Personal history of nicotine dependence; Z88.0 Allergy status to penicillin; Z88.6 Allergy status to analgesic agent; D64.9 Anemia, unspecified; E53.8 Deficiency of other specified B group vitamins

== ENCOUNTER 2017-06-28 11:40 | Inpatient (IN) | payer OTHER, MEDICARE ==
[~2017-06-28] VITALS: Ht 182.9 cm; Wt 79.5 kg
[~2017-06-28 11:40] MED LIST: AMLO10TA2 PO; AMLO5TAB2 PO; ARTI99.0 OU; ARTIDRO3 OP; ARTISOL2 OP; ATOR1TAB19 PO; ATOR1TAB21 PO; ATOR40TA75 PO; B-12100010 PO; ELIQ2.5T PO; FLOM5CAP PO; FOLI1TAB4 PO; GLIP10TA6 PO; LASI40TA PO; METF750T PO; METF850T4 PO; OMEP20CA3 PO; OMEP40CA2 PO; ONGL10TA3 PO; PRESCAP6 PO; RAMI10CA PO; SERT25TA PO; SERT50TA PO; VITA100066 PO; [UNRECOGNIZED DRUG - OTHER] PO
[2017-06-28 12:12] LABS: BASO % 0.2 % (0.0-1.0); EOS # 0.2 10^3/uL (0.0-0.50); EOS % 2.4 % (0.0-3.0); IMMATURE GRANULOCYTE % 0.3 % (0-0); LYMPH # 0.9 10^3/uL (1.5-4.5); LYMPH % 9.5 % (24.0-44.0); MEAN CORPUSCULAR HEMOGLOBIN 29.8 pg (27.0-33.0); MEAN CORPUSCULAR HGB CONC 32.5 g/dl (32.0-36.5); MEAN CORPUSCULAR VOLUME 91.8 fl (80.0-96.0); MONO # 0.6 10^3/uL (0.0-0.8); MONO % 6.5 % (0.0-5.0); NEUTROPHILS # 7.6 10^3/uL (1.8-7.7); NEUTROPHILS % 81.1 % (36.0-66.0); PLATELET COUNT, AUTOMATED 228 10^3/uL (150-450); RED CELL DISTRIBUTION WIDTH 14.3 % (11.5-14.5); WHITE BLOOD COUNT 9.4 10^3/uL (4.0-10.0)
--- NOTE | 2017-06-28 12:17 | REP ---
Clinical: Cough and dyspnea. Comparison: 04/06/2017. Findings: Bibasilar atelectasis/infiltrates and small pleural effusions noted. Chronic left apical scarring. No pneumothorax. Mediastinum and cardiac silhouette are stable. Impression: Acute bibasilar infiltrates/atelectasis and small pleural effusions. Signed by Easton Ba MD 06/28/2017 12:09 P
[2017-06-28 12:21] LABS: VENOUS BASE EXCESS 1.6 (-2.0-2.0); VENOUS O2 SATURATION 65.4 % (60.0-80.0); VENOUS PARTIAL PRESSURE CO2 55.8 mmHg (38.0-50.0); VENOUS PARTIAL PRESSURE O2 38.7 mmHg (30.0-50.0); VENOUS STANDARD HCO3 25.3 MEQ/L
[2017-06-28 12:35] LABS: CALCIUM LEVEL 8.8 MG/DL (8.8-10.2); CREATININE FOR GFR 1.66 MG/DL (0.70-1.30); GLOMERULAR FILTRATION RATE 41.7 (>35); POTASSIUM SERUM 4.1 MEQ/L (3.5-5.1)
[2017-06-28 12:40] LABS: ALBUMIN 3.6 GM/DL (3.2-5.2); ALBUMIN/GLOBULIN RATIO 1.06 (1.00-1.93); BILIRUBIN,DIRECT 0.2 MG/DL (0.0-0.2); BILIRUBIN,TOTAL 0.5 MG/DL (0.2-1.0)
[2017-06-28 12:53] LABS: INR 1.07
[2017-06-28] MEDS ORDERED: FUROSEMIDE 100 MG/10 ML VIAL (J1940) IV ONE (13:00)
[2017-06-28] MEDS ORDERED: LASI20TA PO (13:24)
[2017-06-28] MEDS ORDERED: B-122500 PO (13:24)
[2017-06-28] MEDS ORDERED: ELIQ2.5T PO (13:24)
[2017-06-28] MEDS ORDERED: LOPE1SUS PO (13:24)
[2017-06-28] MEDS ORDERED: AMLO5TAB2 PO (13:24)
[2017-06-28] MEDS ORDERED: MAALSUS20 PO (13:24)
[2017-06-28] MEDS ORDERED: LOPE2TAB3 PO (13:24)
[2017-06-28] MEDS ORDERED: TRAD5TAB PO (13:24)
[2017-06-28] MEDS ORDERED: GUAI100S7 PO (13:24)
[2017-06-28] MEDS ORDERED: TYLE325C PO (13:24)
--- NOTE | 2017-06-28 13:35 | REP ---
Clinical: Pain and swelling . Technique: Oconnell scale and color Doppler evaluation using linear high frequency transducer. Findings: Ultrasound examination of the right lower extremity deep venous structures from the common femoral vein to the popliteal vein demonstrates normal compressibility flow and wave patterns in response to respiration and augmentation. There is no evidence for deep venous thrombosis. Impression: No evidence for deep venous thrombosis. Signed by Easton aB MD 06/28/2017 01:26 P
[2017-06-28] MEDS ORDERED: guaiFENesin SYRUP 200 MG/10 ML UDC PO PRN (14:15)
[2017-06-28] MEDS ORDERED: DEXTROSE 50% 50 ML SYRINGE IV PRN (14:15)
[2017-06-28] MEDS ORDERED: GLUCAGON FOR INJ 1 MG VIAL (J1610) SC PRN (14:15)
[2017-06-28] MEDS ORDERED: HEPARIN SOD (PORCINE) 5000 UNITS/ML VIAL SC SCH (14:15)
[2017-06-28] MEDS ORDERED: IPRATROPIUM 0.5MG/ALBUTEROL 2.5MG INH SOL UD 3ML (DUONEB)(J7620) NEB PRN (14:15)
[2017-06-28] MEDS ORDERED: GLUCOSE 4 GM CHEW TABLET PO PRN (14:15)
[2017-06-28 14:45] LABS: FREE T4 0.98 NG/DL (0.76-1.46)
[2017-06-28] MEDS ORDERED: NITROGLYCERIN 2% OINT 1 GM *U/D* PKT TOP ONE (15:00)
--- NOTE | 2017-06-28 15:17 | HPEPDOC ---
General Date of Admission 06/28/17 Attending Physician: AMANDO KLEIN MD Chief Complaint The patient is a 87-year-old male admitted with a reason for visit of SOB. Source: Patient, RN notes reviewed, Old records Exam Limitations: No limitations Associated Symptoms: Shortness of breath History of Present Illness Mr. Murcia is a 87-year-old male who presents to [facility] Emergency Department with increasing shortness of breath. Past medical history is significant for: hypertension, atrial fibrillation, diastolic congestive heart failure, benign prostatic hyperplasia, anemia of chronic disease, chronic kidney disease-III, coronary artery disease with myocardial infarction, diabetes mellitus, dyslipidemia, depression, severe pulmonary hypertension, vitamin B12 deficiency, allergies, gastroesophageal reflux disease. Patient states that he has been developing worsening shortness of breath with ambulation. At baseline patient is able to ambulate a city block without significant shortness of breath. Associated with the increasing shortness of breath the patient also admits to tiredness without weakness, dizziness, lightheadedness, loss of consciousness, or fall. States that he is "can't breath." These symptoms have been ongoing and progressing over the last month and a half. Symptoms improve with rest. Denies oxygen use at home. Also admits to wheezing that has been ongoing for three weeks. Has also noticed increased swelling of his bilateral lower extremities. Denies any prior episodes. Denies orthopnea or PND. Further denies fever, headache, vision changes, chest pain, skin lesions/rashes, epistaxis, hematemesis, hemoptysis, melena, hematochezia. Admits to bilateral knee pain that is worse with ambulation with the feeling of his knees "giving out", fingertip numbness, nerve pain in his feet, nocturia, dry eyes. Emergency Department evaluation included labs, which revealed low oximetry at 90 % on room air, hypertensive urgency, elevated troponin, respiratory acidosis on ABG, and bibasilar infiltrates/atelectasis on chest x-ray, elevated creatinine secondary to chronic kidney disease, and negative for DVT in the left lower extremity. Hospitalist service was consulted for further medical management. Home Medications Scheduled (Preservision Areds 2) 1 Cap Cap, 1 CAP PO BID, (Reported) Amlodipine Besylate (Amlodipine Besylate) 5 Mg Tab, 5 MG PO DAILY, (Reported) Apixaban Base (Eliquis) 2.5 Mg Tab, 2.5 MG PO BID, (Reported) Artificial Tears (Artificial Tears) 1.4 % Isabella, 1 DROP OU BID, (Reported) Atorvastatin Calcium (Atorvastatin Calcium) 20 Mg Tab, 10 MG PO DAILY, (Reported ) Cholecalciferol (Vitamin D) 1,000 Unit Tab, 1,000 UNIT PO DAILY, (Reported) Cyanocobalamin (B-12) 2,500 Mcg Tab, 2,500 MCG PO DAILY, (Reported) Furosemide (Lasix) 20 Mg Tab, 20 MG PO DAILY, (Reported) Glipizide (Glipizide) 10 Mg Tab, 10 MG PO DAILY, (Reported) Linagliptin Base (Tradjenta) 5 Mg Tab, 5 MG PO DAILY, (Reported) Omeprazole (Omeprazole) 20 Mg Cap, 20 MG PO DAILY, (Reported) Ramipril (Ramipril) 10 Mg Cap, 10 MG PO DAILY, (Reported) Sertraline Hcl (Sertraline HCl) 50 Mg Tab, 25 MG PO DAILY, (Reported) Tamsulosin Hydrochloride (Flomax) 0.4 Mg Cap, 0.4 MG PO QPM, (Reported) Scheduled PRN (Tylenol) 325 Mg Cap, 325 MG PO for HEADACHE, (Reported) Aluminum/Magnesium/Simeth (Maalox Advanced Maximum S 400-400-40 mg/5Ml) 1 Allie Allie, 30 ML PO PRN PRN for CONSTIPATION, (Reported) Guaifenesin (Guaifenesin) 100 Mg/5 Ml Syp, 10 ML PO Q4H PRN for COUGH, (Reported ) Loperamide HCl (Loperamide A-D) 2 Mg Tab, 2 MG PO PRN PRN for AFTER EACH LOOSE STOOL, (Reported) Allergies Coded Allergies: Aspirin (Verified Allergy, Unknown, unknown, 04/06/17) Penicillins (Verified Allergy, Unknown, unknown, 04/06/17) Past Medical History Medical History 1. Hypertension 2. Atrial fibrillation 3. Diastolic congestive heart failure 4. Benign prostatic hyperplasia 5. Anemia of chronic disease 6. Chronic kidney disease-III 7. Coronary artery disease with myocardial infarction 8. Diabetes mellitus 9. Dyslipidemia 10. Depression 11. Severe pulmonary hypertension 12. Vitamin B12 deficiency 13. Allergies 14. Gastroesophageal reflux disease Surgical History 1. Right inguinal repair Family History Father: , 35, hematologic cancer Mother: . 62, myocardial infarction Siblings: - Sister: - Brother: - Brother: - Brother: Social History . perished in a train accident. Has one son. No grandchildren. 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 Former tobacco user. Smoked 1.5 PPD for 21 years. Denies current EtOH use. Use to drink socially. Denies illicit drug use. Lives with Lobito Weaver. Has no pets of his own, but says that his housemate has dogs. Traveled with the [employer]. Review of Symptoms Constitutional: Reports: Fatigue, Denies: Chills, Fever, Night Sweats, Weakness, Weight Loss (Weight gain) Eyes: Reports: Other (Dry eyes), Denies: Pain, Vision change, Conjunctivae inflammation, Eyelid inflammation ENT: Denies: Head Aches, Ear Pain, Dysphagia, Sinus Congestion, Post Nasal Drip , Sore Throat, Epistaxis Skin: Denies: Rash, Lesions, Bruising Pulmonary: Reports: Dyspnea, Cough (Productive of yellow phlegm), Denies: Pleuritic Chest Pain Cardiovascular: Reports: Edema (Bilateral lower extremity), Denies: Chest Pain, Palpitations, Orthopnea, Paroxysmal Noc. Dyspnea, Lt Headedness Gastrointestinal: Denies: Nausea, Vomiting, Abdominal Pain, Diarrhea, Constipation, Melena, Hematochezia Genitourinary: Reports: Frequency, Denies: Dysuria, Incontinence, Hematuria, Retention Hematologic: Denies: Bruising, Bleeding Excessively, Petecchia, Purpura Endocrine: Reports: Polyuria (Nocturia) Musculoskeletal: Denies: Neck Pain, Back Pain, Joint Pain, Muscle Pain Neurological: Reports: Numbness (Fingertips), Denies: Weakness Physical Examination General Exam: Positive: Alert, Cooperative, No Acute Distress Eye Exam: Positive: PERRLA, Conjunctiva & lids normal, EOMI, Negative: Sclera icteric, Ptosis ENT Exam: Positive: Atraumatic, Mucous membr. moist/pink, Pharynx Normal, Tongue Midline, Nares Patent, Negative: Pharyngeal Edema Neck Exam: Positive: Supple, +2 carotid pulse wo bruit, Negative: JVD, thyromegaly, Lymphadenopathy Chest Exam: Positive: Diminished (Throughout lower lung lobes, bilaterally) Heart Exam: Positive: Rate Normal, Irregular Rhythm, Negative: Gallops, Murmurs, Rubs Telemetry: Positive: Atrial fibrillation Abdomen Exam: Positive: Normal bowel sounds, Soft, Other (Multiple murillo angiomas present), Negative: Tenderness, Hepatospenomegaly, Mass, Hernia Extremity Exam: Positive: Edema (+2 right lower extremity; +3 left lower extremity), Tenderness (With palpation of lower extremities), Swelling, Negative: Clubbing, Cyanosis, Normal pulses (Atrial fibrillation) Skin Exam: Negative: Rash, Lesion Neuro Exam: Positive: Cranial Nerves 3-12 NL, Negative: Normal Speech Other physical findings Right lower extremity duplex ultrasound IMPRESSION: No evidence for deep venous thrombosis. Portable chest x-ray IMPRESSION: Acute bibasilar infiltrates/atelectasis and small pleural effusions. Vital Signs Vital Signs Date Time Temp Pulse Resp B/P (MAP) Pulse Ox O2 Delivery O2 Flow Rate FiO2 06/28/17 14:10 64 198/89 (125) 06/28/17 13:55 90 06/28/17 12:04 Nasal Cannula 2.0 06/28/17 11:42 98.2 18 Height (in): 72 Weight (kg): 90 BMI (kg): 26.9 Laboratory Data Labs 24H Laboratory Tests 2 06/28/17 11:59: Immature Granulocyte % (Auto) 0.3H, White Blood Count 9.4, Red Blood Count 2.92L , Hemoglobin 8.7L, Hematocrit 26.8L, Mean Corpuscular Volume 91.8, Mean Corpuscular Hemoglobin 29.8, Mean Corpuscular Hemoglobin Concent 32.5, Red Cell Distribution Width 14.3, Platelet Count 228, Neutrophils (%) (Auto) 81.1H, Lymphocytes (%) (Auto) 9.5L, Monocytes (%) (Auto) 6.5H, Eosinophils (%) (Auto) 2.4, Basophils (%) (Auto) 0.2, Neutrophils # (Auto) 7.6, Lymphocytes # (Auto) 0.9L, Monocytes # (Auto) 0.6, Eosinophils # (Auto) 0.2, Basophils # (Auto) 0.0, Immature Granulocyte # (Auto) 0.0, Nucleated Red Blood Cells % (auto) 0.0, Prothrombin Time 14.1, Prothromb Time International Ratio 1.07, Blood Gas Bicarbonate Standard 25.3, Venous Blood pH 7.323L, Venous Blood Partial Pressure CO2 55.8H, Venous Blood Partial Pressure O2 38.7, Venous Blood Total Carbon Dioxide 30.0H, Venous Blood HCO3 28.3H, Venous Blood Oxygen Saturation 65.4, Venous Blood Base Excess 1.6, Anion Gap 7L, Glomerular Filtration Rate 41.7, Lactic Acid Level 1.7, Blood Urea Nitrogen 28H, Creatinine 1.66H, Sodium Level 141, Potassium Level 4.1, Chloride Level 107, Carbon Dioxide Level 27, Calcium Level 8.8, Total Creatine Kinase 180, Aspartate Amino Transf (AST/SGOT) 26, Alanine Aminotransferase (ALT/SGPT) 39, Alkaline Phosphatase 114, Total Bilirubin 0.5, Direct Bilirubin 0.2, Creatine Kinase MB 5.3H, Creatine Kinase MB Relative Index 2.94, Troponin I 0.46H, SK-Wew-[id number]-Type Natriuretic Peptide 3917H, Total Protein 7.0, Albumin 3.6, Albumin/Globulin Ratio 1.06, Thyroid Stimulating Hormone (TSH) 3.790H CBC/BMP Laboratory Tests 06/28/17 11:59 Red Blood Count 2.92 L, Mean Corpuscular Volume 91.8, Mean Corpuscular Hemoglobin 29.8, Mean Corpuscular Hemoglobin Concent 32.5, Red Cell Distribution Width 14.3, Neutrophils (%) (Auto) 81.1 H, Lymphocytes (%) (Auto) 9.5 L, Monocytes (%) (Auto) 6.5 H, Eosinophils (%) (Auto) 2.4, Basophils (%) ( Auto) 0.2, Neutrophils # (Auto) 7.6, Lymphocytes # (Auto) 0.9 L, Monocytes # ( Auto) 0.6, Eosinophils # (Auto) 0.2, Basophils # (Auto) 0.0, Calcium Level 8.8, Total Creatine Kinase 180 Microbiology Microbiology 06/28/17 Blood Culture, Received Pending 06/28/17 Blood Culture, Received Pending 06/28/17 Influenza Virus Type A Antigen - Final, Complete 06/28/17 Influenza Virus Type B Antigen - Final, Complete Plan / VTE VTE Prophylaxis Ordered?: Yes (Eliquis 2.5mg twice a day) Plan Plan Exacerbation of congestive heart failure - BNP 3917 - Lasix 40mg IV BID - Duonebs, Robitussion - No antibiotics indicated at this time - CT chest without contrast Hypertensive urgency - Amlodipine - Ramipril - Hydralazine 5mg IV Q4HP - Nitropaste - Admit to PCU for telemetry Elevated troponin - Serial cardiac markers - EKG shows atrial fibrillation - Has been elevated at prior admissions; likely secondary to CHF exacerbation - Admit to PCU Atrial fibrillation - Continue Eliquis Diabetes mellitus - SSI, fingersticks AC/HS, hypoglycemic protocol - Consistent carbohydrate diet (+ 2g sodium) Anemia of chronic disease - Continue vitamin 12 - Start Ferrous Gluconate with vitamin C as well as bowel regimen, including Dulcolax and Senokot S Chronic kidney disease-III - Monitor BMP - Creatinine appears mildly elevated from baseline (1.5) Dyslipidemia - Continue Atorvastatin Depression - Continue with Sertraline Gastroesophageal reflux disease - Continue with Omeprazole Benign prostatic hyperplasia - Continue Flomax Disposition Admit: PCU Anticipated hospitalization: 2 nights Attending: Dr. Charles Diet: Continue Current (Consistent carbohydrate + 2g sodium) Activity: Continue Current (Activity as tolerated) Respiratory: Increase Oxygen (Oxygen therapy orders with titration > 92%) Diagnostics: Check Labs, Repeat Labs in AM, Obtain Cultures (Sputum) Anticipated Discharge: Home GME ATTESTATION GME ATTESTATION My faculty preceptor for this patient encounter was physically present during the encounter and was fully available. All aspects of the patient interview, examination, medical decision making process, and medical care plan development were reviewed and approved by the faculty preceptor. The faculty preceptor is aware and concurs with the plan as stated in the body of this note and will attest to such by his/her cosignature. ATTENDING NOTE I have both independently examined this patient as well as reviewed the H&P. I have discussed in detail with the resident the findings and plan of treatment as documented in the residents note. I will continue to follow the patient and offer further guidance to the patients care as necessary during this hospital stay. DONALD Alatorre MD, DO Jun 28, 2017 15:17 AMANDO KLEIN MD Jun 30, 2017 11:51
--- NOTE | 2017-06-28 15:32 | REP ---
Clinical: Shortness of breath. Technique: Axial noncontrast images from the thoracic inlet to the upper abdomen with coronal and sagittal re-formations. Findings: Moderate bilateral pleural effusions with bilateral lower lobe consolidations are appreciated along with mild chronic age-related interstitial changes and bronchiectasis. No pneumothorax. Tracheobronchial tree is patent. Atherosclerotic changes to the thoracic aorta and coronary arteries noted without aortic aneurysm. Cardiomegaly is suggested with minimal pericardial effusion. No obvious significant adenopathy. Musculoskeletal structures demonstrate degenerative changes without focal osseous abnormality. Limited upper abdomen demonstrates normal bilateral adrenal glands. Impression: Moderate bilateral pleural effusions with lower lobe consolidations (right greater than left). Signed by Easton Ba MD 06/28/2017 03:23 P
[2017-06-28] MEDS: hydrALAZINE INJ 20 MG/ML VIAL IV PRN (17:20)
[2017-06-28 17:40] VITALS: BP 138/68
--- NOTE | 2017-06-28 18:12 | ECGEPIP ---
Stationary ECG Study [facility] - ED Test Date: 2017-06-28 Pat Name: HAILEY CARDOSO Department: Room: [place] [address] Gender: M Knowledge Manager: kit : 1930 Requested By: Britni Foote Order Number: [id number] Reading MD: Britni Foote Measurements Intervals [place] Rate: 62 P: HI: 0 QRS: 57 QRSD: 102 T: 72 QT: 417 QTc: 425 Interpretive Statements ATRIAL FIBRILLATION MODERATE ST DEPRESSION DELAYED R PROGRESSION SIMILAR 04/07/17 Electronically Signed On 06-28-2017 18:11:53 EST by Britni Foote
[2017-06-28] MEDS: FUROSEMIDE 40 MG/4 ML VIAL (J1940) IV SCH (18:34)
[2017-06-28] MEDS: HumaLOG INSULIN (NovoLOG) PER UNIT SC SCH ×2 (18:34→20:20)
[2017-06-28 20:00] VITALS: BP 178/73
[2017-06-28] MEDS: IPRATROPIUM 0.5MG/ALBUTEROL 2.5MG INH SOL UD 3ML (DUONEB)(J7620) NEB SCH (20:00)
[2017-06-28 20:18] VITALS: BP 144/70
[2017-06-28] MEDS: TAMSULOSIN 0.4 MG CAP PO SCH (20:20)
[2017-06-28] MEDS: APIXABAN 2.5 MG TAB (ELIQUIS) PO SCH (20:20)
[2017-06-28] MEDS: SENOKOT S TAB PO SCH (20:20)
[2017-06-28] MEDS: POLYVINYL ALCOHOL OPHTH SOLN 15 ML(LIQUITEARS) OU SCH (20:20)
[2017-06-28 21:47] LABS: CALCIUM LEVEL 8.7 MG/DL (8.8-10.2); CREATININE FOR GFR 1.78 MG/DL (0.70-1.30); GLOMERULAR FILTRATION RATE 38.5 (>35); POTASSIUM SERUM 3.7 MEQ/L (3.5-5.1)
[2017-06-28 23:59] VITALS: BP 123/60
[2017-06-29] VITALS (9 sets, daily range): BP systolic 132–191; BP diastolic 66–86
[2017-06-29] MEDS: IPRATROPIUM 0.5MG/ALBUTEROL 2.5MG INH SOL UD 3ML (DUONEB)(J7620) NEB SCH ×4 (02:00→20:27)
[2017-06-29 04:29] LABS: BASO % 0.3 % (0.0-1.0); EOS # 0.2 10^3/uL (0.0-0.50); IMMATURE GRANULOCYTE % 0.3 % (0-0); LYMPH # 1.1 10^3/uL (1.5-4.5); LYMPH % 13.2 % (24.0-44.0); MEAN CORPUSCULAR HEMOGLOBIN 29.5 pg (27.0-33.0); MEAN CORPUSCULAR HGB CONC 32.3 g/dl (32.0-36.5); MEAN CORPUSCULAR VOLUME 91.5 fl (80.0-96.0); MONO # 0.6 10^3/uL (0.0-0.8); MONO % 7.3 % (0.0-5.0); NEUTROPHILS % 75.9 % (36.0-66.0); PLATELET COUNT, AUTOMATED 206 10^3/uL (150-450); RED CELL DISTRIBUTION WIDTH 14.2 % (11.5-14.5); WHITE BLOOD COUNT 7.9 10^3/uL (4.0-10.0)
[2017-06-29 05:03] LABS: CALCIUM LEVEL 8.8 MG/DL (8.8-10.2); CREATININE FOR GFR 1.59 MG/DL (0.70-1.30); GLOMERULAR FILTRATION RATE 43.9 (>35); MAGNESIUM LEVEL 1.6 MG/DL (1.8-2.4); POTASSIUM SERUM 3.6 MEQ/L (3.5-5.1)
[2017-06-29] MEDS ORDERED: glipiZIDE 10 MG TAB PO SCH (07:30)
[2017-06-29] MEDS: HumaLOG INSULIN (NovoLOG) PER UNIT SC SCH ×4 (08:47→21:00)
[2017-06-29] MEDS: SERTRALINE HCL 50 MG TAB PO SCH (08:48)
[2017-06-29] MEDS: ASCORBIC ACID 500 MG TAB PO SCH (08:48)
[2017-06-29] MEDS: ATORVASTATIN 10 MG TAB PO SCH (08:48)
[2017-06-29] MEDS: APIXABAN 2.5 MG TAB (ELIQUIS) PO SCH ×2 (08:48→21:14)
[2017-06-29] MEDS: FUROSEMIDE 40 MG/4 ML VIAL (J1940) IV SCH ×2 (08:48→17:07)
[2017-06-29] MEDS: BISACODYL 5 MG TAB PO SCH (08:48)
[2017-06-29] MEDS: FERROUS GLUCONATE 324 MG TAB PO SCH (08:48)
[2017-06-29] MEDS: SENOKOT S TAB PO SCH ×2 (08:48→21:00)
[2017-06-29] MEDS: amLODIPine 5 MG TAB PO SCH (08:49)
[2017-06-29] MEDS: POLYVINYL ALCOHOL OPHTH SOLN 15 ML(LIQUITEARS) OU SCH ×2 (08:49→21:14)
[2017-06-29] MEDS: VITAMIN D 1,000 INTERNATIONAL UNITS TABLET PO SCH (08:49)
[2017-06-29] MEDS: RAMIPRIL 5 MG CAP PO SCH (08:49)
[2017-06-29] MEDS: OMEPRAZOLE 20 MG CAP PO SCH (08:58)
[2017-06-29] MEDS: CYANOCOBALAMIN 500 MCG TAB PO SCH (08:58)
[2017-06-29] MEDS: hydrALAZINE INJ 20 MG/ML VIAL IV PRN (12:37)
[2017-06-29] MEDS ORDERED: MAGNESIUM OXIDE 400 MG TAB (MAG-OX) PO ONE (20:00)
[2017-06-29] MEDS: TAMSULOSIN 0.4 MG CAP PO SCH (21:14)
[2017-06-30] MEDS: IPRATROPIUM 0.5MG/ALBUTEROL 2.5MG INH SOL UD 3ML (DUONEB)(J7620) NEB SCH ×4 (00:55→19:51)
[2017-06-30 04:00] VITALS: BP 124/71
[2017-06-30 05:40] LABS: BASO % 0.4 % (0.0-1.0); EOS # 0.2 10^3/uL (0.0-0.50); EOS % 2.6 % (0.0-3.0); IMMATURE GRANULOCYTE % 0.2 % (0-0); LYMPH # 1.3 10^3/uL (1.5-4.5); LYMPH % 13.7 % (24.0-44.0); MEAN CORPUSCULAR HEMOGLOBIN 28.6 pg (27.0-33.0); MEAN CORPUSCULAR VOLUME 89.5 fl (80.0-96.0); MONO # 0.7 10^3/uL (0.0-0.8); MONO % 7.8 % (0.0-5.0); NEUTROPHILS # 7.1 10^3/uL (1.8-7.7); NEUTROPHILS % 75.3 % (36.0-66.0); PLATELET COUNT, AUTOMATED 210 10^3/uL (150-450); RED CELL DISTRIBUTION WIDTH 14.5 % (11.5-14.5); WHITE BLOOD COUNT 9.4 10^3/uL (4.0-10.0)
[2017-06-30 05:57] LABS: CALCIUM LEVEL 8.4 MG/DL (8.8-10.2); CREATININE FOR GFR 1.88 MG/DL (0.70-1.30); GLOMERULAR FILTRATION RATE 36.1 (>35); MAGNESIUM LEVEL 1.7 MG/DL (1.8-2.4); POTASSIUM SERUM 3.9 MEQ/L (3.5-5.1)
[2017-06-30] MEDS ORDERED: MAG SULF 1GM/100ML (MAG RUN) 1 GM in APPROPRIATE DILUENT 1 EA IV ONE (07:00)
[2017-06-30] MEDS ORDERED: CYANOCOBALAMIN 1,000 MCG/ML VIAL (J3420) IM ONE (08:00)
[2017-06-30 08:08] VITALS: BP 132/66
[2017-06-30] MEDS: HumaLOG INSULIN (NovoLOG) PER UNIT SC SCH ×4 (08:18→21:00)
[2017-06-30] MEDS: FUROSEMIDE 40 MG/4 ML VIAL (J1940) IV SCH ×2 (08:18→17:13)
[2017-06-30] MEDS: SENOKOT S TAB PO SCH ×2 (08:19→22:33)
[2017-06-30] MEDS: BISACODYL 5 MG TAB PO SCH (08:19)
[2017-06-30] MEDS: FERROUS GLUCONATE 324 MG TAB PO SCH (08:19)
[2017-06-30] MEDS: SERTRALINE HCL 50 MG TAB PO SCH (08:19)
[2017-06-30] MEDS: ATORVASTATIN 10 MG TAB PO SCH (08:19)
[2017-06-30] MEDS: VITAMIN D 1,000 INTERNATIONAL UNITS TABLET PO SCH (08:19)
[2017-06-30] MEDS: CYANOCOBALAMIN 500 MCG TAB PO SCH (08:19)
[2017-06-30] MEDS: RAMIPRIL 5 MG CAP PO SCH (08:20)
[2017-06-30] MEDS: amLODIPine 5 MG TAB PO SCH (08:20)
[2017-06-30] MEDS: ASCORBIC ACID 500 MG TAB PO SCH (08:20)
[2017-06-30] MEDS: APIXABAN 2.5 MG TAB (ELIQUIS) PO SCH ×2 (08:20→22:33)
[2017-06-30] MEDS: OMEPRAZOLE 20 MG CAP PO SCH (08:20)
[2017-06-30] MEDS: POLYVINYL ALCOHOL OPHTH SOLN 15 ML(LIQUITEARS) OU SCH ×2 (08:21→21:00)
[2017-06-30 12:00] VITALS: BP 135/62
--- NOTE | 2017-06-30 12:43 | IPNPDOC ---
Subjective Date Seen The patient was seen on 06/30/17. Subjective Chief Complaint/HPI The patient is a 87-year-old male admitted with a reason for visit of Chf( Congestive Heart Failure). Events since last encounter feels much better this am . Shortness of breath improved. Leg swelling also improving, no fever or chills, no chest pain or sob , no abdominal pain nausea or vomiting or diarrhea. Objective Physical Examination General Exam: Positive: Alert, Cooperative, No Acute Distress Eye Exam: Positive: PERRLA, Conjunctiva & lids normal, EOMI, Negative: Sclera icteric, Ptosis ENT Exam: Positive: Atraumatic, Mucous membr. moist/pink, Pharynx Normal, Tongue Midline, Nares Patent, Negative: Pharyngeal Edema Neck Exam: Positive: Supple, +2 carotid pulse wo bruit, Negative: JVD, thyromegaly, Lymphadenopathy Chest Exam: Positive: Diminished (Throughout lower lung lobes, bilaterally) Heart Exam: Positive: Rate Normal, Irregular Rhythm, Negative: Gallops, Murmurs, Rubs Telemetry: Positive: Atrial fibrillation, PVCs, Other Telemetry: (NSVTs) Abdomen Exam: Positive: Normal bowel sounds, Soft, Other (Multiple murillo angiomas present), Negative: Tenderness, Hepatospenomegaly, Mass, Hernia Extremity Exam: Positive: Edema (+2 right lower extremity; +3 left lower extremity), Tenderness (With palpation of lower extremities), Swelling, Negative: Clubbing, Cyanosis, Normal pulses (Atrial fibrillation) Skin Exam: Negative: Rash, Lesion Neuro Exam: Positive: Cranial Nerves 3-12 NL, Negative: Normal Speech Assessment /Plan Problems (1) CHF (congestive heart failure) Status: Acute Problem Text: acute on chronic diastolic CHF . Recent echo shows normal left ventricular EF. continue with lasix BID. (2) A-fib Status: Chronic Problem Text: rate controlled without any medications, continue with eliquis. 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 also has m spike in the gamma region IGG [place]. Anemia worse now. will give 1 unit Blood transfusion. (10) Elevated troponin Status: Chronic Problem Text: from chronic CHF. (11) Pulmonary hypertension Status: Chronic (12) Chronic right-sided heart failure Status: Chronic Plan/VTE VTE Prophylaxis Ordered?: Yes (Eliquis 2.5mg twice a day) Plan Diet: Continue Current (Consistent carbohydrate + 2g sodium) Activity: Continue Current (Activity as tolerated) Respiratory: Increase Oxygen (Oxygen therapy orders with titration > 92%) Diagnostics: Check Labs, Repeat Labs in AM, Obtain Cultures (Sputum) Anticipated Discharge: Home VS, I&O, [facility] Vital Signs/I&O Vital Signs Date Time Temp Pulse Resp B/P (MAP) Pulse Ox O2 Delivery O2 Flow Rate FiO2 06/30/17 08:20 132/66 06/30/17 08:20 87 06/30/17 08:08 98.1 18 92 Room Air 06/29/17 08:00 2.0 I&O- Last 24 Hours up to 6 AM 07/01/17 06:00 Intake Total 580 ml Output Total 400 ml Balance 180 ml Laboratory Data 24H LABS Laboratory Tests 2 06/29/17 16:40: Bedside Glucose (Misc Panel) 242H 06/29/17 21:01: Bedside Glucose (Misc Panel) 173H 06/30/17 05:22: Immature Granulocyte % (Auto) 0.2H, White Blood Count 9.4, Red Blood Count 2.76L , Hemoglobin 7.9L, Hematocrit 24.7L, Mean Corpuscular Volume 89.5, Mean Corpuscular Hemoglobin 28.6, Mean Corpuscular Hemoglobin Concent 32.0, Red Cell Distribution Width 14.5, Platelet Count 210, Neutrophils (%) (Auto) 75.3H, Lymphocytes (%) (Auto) 13.7L, Monocytes (%) (Auto) 7.8H, Eosinophils (%) (Auto) 2.6, Basophils (%) (Auto) 0.4, Neutrophils # (Auto) 7.1, Lymphocytes # (Auto) 1.3L, Monocytes # (Auto) 0.7, Eosinophils # (Auto) 0.2, Basophils # (Auto) 0.0, Immature Granulocyte # (Auto) 0.0, Nucleated Red Blood Cells % (auto) 0.0, Anion Gap 9, Glomerular Filtration Rate 36.1, Blood Urea Nitrogen 32H, Creatinine 1.88H, Sodium Level 141, Potassium Level 3.9, Chloride Level 102, Carbon Dioxide Level 30, Calcium Level 8.4L, Magnesium Level 1.7L 06/30/17 11:32: Bedside Glucose (Misc Panel) 201H CBC/BMP Laboratory Tests 06/30/17 05:22 Red Blood Count 2.76 L, Mean Corpuscular Volume 89.5, Mean Corpuscular Hemoglobin 28.6, Mean Corpuscular Hemoglobin Concent 32.0, Red Cell Distribution Width 14.5, Neutrophils (%) (Auto) 75.3 H, Lymphocytes (%) (Auto) 13.7 L, Monocytes (%) (Auto) 7.8 H, Eosinophils (%) (Auto) 2.6, Basophils (%) ( Auto) 0.4, Neutrophils # (Auto) 7.1, Lymphocytes # (Auto) 1.3 L, Monocytes # ( Auto) 0.7, Eosinophils # (Auto) 0.2, Basophils # (Auto) 0.0, Calcium Level 8.4 L Microbiology Microbiology 06/28/17 Blood Culture - Preliminary, Resulted No Growth after 48 hours. All Specime... 06/28/17 Blood Culture - Preliminary, Resulted No Growth after 48 hours. All Specime... 06/28/17 Gram Stain - Final, Resulted 06/28/17 Sputum Culture, Resulted Pending 06/28/17 Influenza Virus Type A Antigen - Final, Complete 06/28/17 Influenza Virus Type B Antigen - Final, Complete JAMES MCCLOUD MD Jun 30, 2017 12:43
[2017-06-30 16:00] VITALS: BP 188/92
[2017-06-30 20:00] VITALS: BP 188/89
[2017-06-30] MEDS: TAMSULOSIN 0.4 MG CAP PO SCH (22:33)
[2017-06-30 23:59] VITALS: BP 133/80
[2017-07-01] VITALS (14 sets, daily range): BP systolic 127–188; BP diastolic 60–95
[2017-07-01] MEDS: IPRATROPIUM 0.5MG/ALBUTEROL 2.5MG INH SOL UD 3ML (DUONEB)(J7620) NEB SCH ×4 (00:49→21:09)
[2017-07-01 05:23] LABS: BASO % 0.3 % (0.0-1.0); EOS # 0.2 10^3/uL (0.0-0.50); IMMATURE GRANULOCYTE % 0.2 % (0-0); LYMPH # 0.9 10^3/uL (1.5-4.5); LYMPH % 9.7 % (24.0-44.0); MEAN CORPUSCULAR HEMOGLOBIN 29.1 pg (27.0-33.0); MEAN CORPUSCULAR HGB CONC 32.6 g/dl (32.0-36.5); MEAN CORPUSCULAR VOLUME 89.4 fl (80.0-96.0); MONO # 0.6 10^3/uL (0.0-0.8); MONO % 6.4 % (0.0-5.0); NEUTROPHILS # 7.9 10^3/uL (1.8-7.7); NEUTROPHILS % 81.4 % (36.0-66.0); PLATELET COUNT, AUTOMATED 197 10^3/uL (150-450); RED CELL DISTRIBUTION WIDTH 15.2 % (11.5-14.5); WHITE BLOOD COUNT 9.7 10^3/uL (4.0-10.0)
[2017-07-01 05:43] LABS: ANION GAP 8 MEQ/L (8-16); BLOOD UREA NITROGEN 31 MG/DL (7-18); CALCIUM LEVEL 8.6 MG/DL (8.8-10.2); CARBON DIOXIDE LEVEL 31 MEQ/L (21-32); CHLORIDE LEVEL 102 MEQ/L (98-107); CREATININE FOR GFR 1.85 MG/DL (0.70-1.30); GLOMERULAR FILTRATION RATE 36.8 (>35); GLUCOSE, FASTING 214 MG/DL (83-110); MAGNESIUM LEVEL 1.8 MG/DL (1.8-2.4); POTASSIUM SERUM 3.9 MEQ/L (3.5-5.1); SODIUM LEVEL 141 MEQ/L (136-145)
[2017-07-01] MEDS: HumaLOG INSULIN (NovoLOG) PER UNIT SC SCH ×4 (07:55→21:52)
[2017-07-01] MEDS: POLYVINYL ALCOHOL OPHTH SOLN 15 ML(LIQUITEARS) OU SCH ×2 (09:00→21:52)
[2017-07-01] MEDS: FUROSEMIDE 40 MG/4 ML VIAL (J1940) IV SCH ×2 (09:19→16:34)
[2017-07-01] MEDS: CYANOCOBALAMIN 500 MCG TAB PO SCH (09:19)
[2017-07-01] MEDS: SERTRALINE HCL 50 MG TAB PO SCH (09:19)
[2017-07-01] MEDS: amLODIPine 5 MG TAB PO SCH (09:20)
[2017-07-01] MEDS: RAMIPRIL 5 MG CAP PO SCH (09:20)
[2017-07-01] MEDS: BISACODYL 5 MG TAB PO SCH (09:20)
[2017-07-01] MEDS: OMEPRAZOLE 20 MG CAP PO SCH (09:20)
[2017-07-01] MEDS: ATORVASTATIN 10 MG TAB PO SCH (09:20)
[2017-07-01] MEDS: APIXABAN 2.5 MG TAB (ELIQUIS) PO SCH ×2 (09:20→21:52)
[2017-07-01] MEDS: VITAMIN D 1,000 INTERNATIONAL UNITS TABLET PO SCH (09:20)
[2017-07-01] MEDS: FERROUS GLUCONATE 324 MG TAB PO SCH (09:20)
[2017-07-01] MEDS: ASCORBIC ACID 500 MG TAB PO SCH (09:21)
[2017-07-01] MEDS: SENOKOT S TAB PO SCH ×2 (09:21→21:52)
--- NOTE | 2017-07-01 09:24 | IPNPDOC ---
Date Seen The patient was seen on 07/01/17. Progress Note SUBJECTIVE: Patient is a 87-year-old male with exacerbation of congestive heart failure. Patient is evaluated at bedside this morning. He denies chest pain, shortness of breath, fever, night sweats, chills. Admitted to abdominal pain overnight and urinary urgency with frequency. A Torres catheter was inserted overnight which the patient stated relieved his abdominal pain. Would like to keep the Torres catheter in place as he says it was quite difficult to insert. OBJECTIVE PHYSICAL EXAMINATION: VITAL SIGNS: Please see below. GENERAL: Elderly male, wearing hospital gown, alert and conversant, no acute distress Eye Exam: PERRL, Conjunctiva & lids normal, EOMI ENT Exam: Atraumatic, mucous membranes moist/pink, pharynx normal, tongue midline, nares patent Neck Exam: Supple, trachea midline, no lymphadenopathy Chest Exam: Clear to auscultation bilaterally, adequate inspiratory and expiratory airway excursion, no wheeze, rhonchi, crackles Heart Exam: Irregularly irregular heart rate and rhythm, no murmur, rub, click Abdomen Exam: Normal bowel sounds, soft, non-tender, non-distended, no organomegaly Extremity Exam: Edema (+1-2 right lower extremity; +1-2 left lower extremity), knee high compression Skin Exam: No rash, lesion Neuro Exam: CN II-XII grossly intact LABORATORY DATA: Please see below. MICROBIOLOGY: Please see below. DVT prophylaxis ordered?: Eliquis 2.5mg twice a day. ASSESSMENT AND PLAN: This is a 87-year-old male with exacerbation of congestive heart failure. PROBLEMS: 1. Exacerbation of congestive heart failure: BNP has improved to 2482. Continue with Lasix BID, Duonebs, and Robitussin. Advised patient to restrict fluids to 1.5L per day (~ 1.5 quarts). 2. Urinary retention: Torres catheter inserted. Remains in place for now. Could consider removing in the next 24 hours. 3. Hypertensive urgency: Significantly improved. Remains on Amlodipine and Ramipril. Hydralazine IV has been discontinued. 4. Elevated troponin: Remains chronically elevated. No chest pain. 5. Atrial fibrillation: Continue with Eliquis. 6. Diabetes mellitus: SSI, fingersticks AC/HS, hypoglycemic protocol and consistent carbohydrate diet (+ 2g sodium). 7. Anemia of chronic disease: Continue vitamin 12. Remains on Ferrous Gluconate with vitamin C as well as bowel regimen, including Dulcolax and Senokot S. Transfusing one unit of PRBC. 8. Chronic kidney disease-III: Monitor BMP. Creatinine appears mildly elevated from baseline (1.5) 9. Dyslipidemia: Continue Atorvastatin. 10. Depression: Continue with Sertraline. 11. Gastroesophageal reflux disease: Continue with Omeprazole. 12. Benign prostatic hyperplasia: Continue Flomax. VS, I&O, 24H, Fishbone Vital Signs/I&O Vital Signs Date Time Temp Pulse Resp B/P (MAP) Pulse Ox O2 Delivery O2 Flow Rate FiO2 07/01/17 08:01 97.5 71 19 127/89 (102) 97 Room Air 06/29/17 08:00 2.0 I&O- Last 24 Hours up to 6 AM 07/02/17 06:00 Intake Total 0 ml Output Total 0 ml Balance 0 ml Laboratory Data 24H LABS Laboratory Tests 2 06/30/17 11:32: Bedside Glucose (Misc Panel) 201H 06/30/17 16:35: Bedside Glucose (Misc Panel) 140H 06/30/17 21:23: Bedside Glucose (Misc Panel) 228H 07/01/17 04:38: Immature Granulocyte % (Auto) 0.2H, White Blood Count 9.7, Red Blood Count 3.02L , Hemoglobin 8.8L, Hematocrit 27.0L, Mean Corpuscular Volume 89.4, Mean Corpuscular Hemoglobin 29.1, Mean Corpuscular Hemoglobin Concent 32.6, Red Cell Distribution Width 15.2H, Platelet Count 197, Neutrophils (%) (Auto) 81.4H, Lymphocytes (%) (Auto) 9.7L, Monocytes (%) (Auto) 6.4H, Eosinophils (%) (Auto) 2.0, Basophils (%) (Auto) 0.3, Neutrophils # (Auto) 7.9H, Lymphocytes # (Auto) 0.9L, Monocytes # (Auto) 0.6, Eosinophils # (Auto) 0.2, Basophils # (Auto) 0.0, Immature Granulocyte # (Auto) 0.0, Nucleated Red Blood Cells % (auto) 0.0, Anion Gap 8, Glomerular Filtration Rate 36.8, Blood Urea Nitrogen 31H, Creatinine 1.85H, Sodium Level 141, Potassium Level 3.9, Chloride Level 102, Carbon Dioxide Level 31, Calcium Level 8.6L, Magnesium Level 1.8 CBC/BMP Laboratory Tests 07/01/17 04:38 Red Blood Count 3.02 L, Mean Corpuscular Volume 89.4, Mean Corpuscular Hemoglobin 29.1, Mean Corpuscular Hemoglobin Concent 32.6, Red Cell Distribution Width 15.2 H, Neutrophils (%) (Auto) 81.4 H, Lymphocytes (%) (Auto ) 9.7 L, Monocytes (%) (Auto) 6.4 H, Eosinophils (%) (Auto) 2.0, Basophils (%) ( Auto) 0.3, Neutrophils # (Auto) 7.9 H, Lymphocytes # (Auto) 0.9 L, Monocytes # ( Auto) 0.6, Eosinophils # (Auto) 0.2, Basophils # (Auto) 0.0, Calcium Level 8.6 L Microbiology Microbiology 06/28/17 Blood Culture - Preliminary, Resulted No Growth after 48 hours. All Specime... 06/28/17 Blood Culture - Preliminary, Resulted No Growth after 48 hours. All Specime... 06/28/17 Gram Stain - Final, Complete 06/28/17 Sputum Culture - Final, Complete Staphylococcus Aureus 06/28/17 Influenza Virus Type A Antigen - Final, Complete 06/28/17 Influenza Virus Type B Antigen - Final, Complete DONALD LYON DO Jul 01, 2017 09:24
[2017-07-01 13:08] LABS: VITAMIN B12 LEVEL > 2000 PG/ML (247-911)
[2017-07-01] MEDS ORDERED: SLF 3 ML SYR IV PRN (14:45)
[2017-07-01] MEDS: TAMSULOSIN 0.4 MG CAP PO SCH (21:52)
[2017-07-01] MEDS: SLF 3 ML SYR IV SCH (21:52)
[2017-07-02] MEDS: IPRATROPIUM 0.5MG/ALBUTEROL 2.5MG INH SOL UD 3ML (DUONEB)(J7620) NEB SCH ×4 (02:00→20:44)
[2017-07-02 04:00] VITALS: BP 144/66
[2017-07-02 05:41] LABS: BASO % 0.2 % (0.0-1.0); EOS # 0.2 10^3/uL (0.0-0.50); EOS % 1.7 % (0.0-3.0); IMMATURE GRANULOCYTE % 0.4 % (0-0); LYMPH # 1.1 10^3/uL (1.5-4.5); LYMPH % 7.9 % (24.0-44.0); MEAN CORPUSCULAR HEMOGLOBIN 29.5 pg (27.0-33.0); MEAN CORPUSCULAR HGB CONC 33.2 g/dl (32.0-36.5); MEAN CORPUSCULAR VOLUME 88.7 fl (80.0-96.0); MONO % 7.4 % (0.0-5.0); NEUTROPHILS % 82.4 % (36.0-66.0); PLATELET COUNT, AUTOMATED 198 10^3/uL (150-450); RED CELL DISTRIBUTION WIDTH 15.2 % (11.5-14.5); WHITE BLOOD COUNT 13.3 10^3/uL (4.0-10.0)
[2017-07-02 06:01] LABS: CALCIUM LEVEL 8.5 MG/DL (8.8-10.2); CREATININE FOR GFR 1.8 MG/DL (0.70-1.30); POTASSIUM SERUM 4.1 MEQ/L (3.5-5.1)
[2017-07-02] MEDS: SLF 3 ML SYR IV SCH ×3 (06:31→20:40)
[2017-07-02] MEDS ORDERED: MAGNESIUM GLUCONATE 500 MG TAB PO ONE (07:30)
[2017-07-02] MEDS: HumaLOG INSULIN (NovoLOG) PER UNIT SC SCH ×4 (07:39→20:40)
--- NOTE | 2017-07-02 07:42 | IPNPDOC ---
Date Seen The patient was seen on 07/02/17. Progress Note SUBJECTIVE: Patient is a 87-year-old male with exacerbation of congestive heart failure. Patient is evaluated at bedside this morning. He states that he did not sleep well as he was experiencing right-sided shoulder pain. He also experienced a pain/burning sensation on the bottoms of his feet twice last night for which he had to get out of bed in order to relieve it. He denies chest pain, shortness of breath, or cough. His sputum culture was positive for MSSA sensitive to Clindamycin. Continues to have a Torres catheter in place. OBJECTIVE PHYSICAL EXAMINATION: VITAL SIGNS: Please see below. GENERAL: Elderly male, wearing hospital gown, laying in bed, hearing aides not in place this morning, no acute distress Eye Exam: PERRL, Conjunctiva & lids normal, EOMI ENT Exam: Atraumatic, mucous membranes moist/pink, pharynx normal, tongue midline, nares patent Neck Exam: Supple, trachea midline, no lymphadenopathy Chest Exam: Clear to auscultation bilaterally, adequate inspiratory and expiratory airway excursion, no wheeze, rhonchi, crackles Heart Exam: Irregularly irregular heart rate and rhythm, no murmur, rub, click Abdomen Exam: Diminished bowel sounds, soft, non-tender, non-distended, no organomegaly Extremity Exam: Only trace peripheral edema appreciated in lower extremities bilaterally, knee high compression Skin Exam: No rash, lesion Neuro Exam: CN II-XII grossly intact LABORATORY DATA: Please see below. MICROBIOLOGY: Please see below. DVT prophylaxis ordered?: Eliquis 2.5mg twice a day. ASSESSMENT AND PLAN: This is a 87-year-old male with exacerbation of congestive heart failure. PROBLEMS: 1. Leukocytosis: Afebrile. Sputum positive for MSSA and sensitive to Clindamycin. Will also start Bacid to prevent against diarrhea. 2. Lower extremity muscle spasm: Magnesium at lower end of normal. Provided oral supplementation. 3. Right shoulder pain: Likely musculoskeletal in nature. Providing K-pad for symptomatic relief. 4. Exacerbation of congestive heart failure: Peripheral edema has improved. Continue with Lasix BID, Duonebs, and Robitussin. Advised patient to restrict fluids to 1.5L per day (~ 1.5 quarts). 5. Urinary retention: Torres catheter inserted. Remains in place for now. Could consider removing in the next 24 hours. 6. Hypertensive urgency: Significantly improved. Remains on Amlodipine and Ramipril. 7. Elevated troponin: Remains chronically elevated. No chest pain. 8. Atrial fibrillation: Continue with Eliquis. 9. Diabetes mellitus: SSI, fingersticks AC/HS, hypoglycemic protocol and consistent carbohydrate diet (+ 2g sodium). 10. Anemia of chronic disease: Vitamin B12 level quite elevated. Have discontinued Vitamin B12 supplementation. Remains on Ferrous Gluconate with vitamin C as well as bowel regimen, including Dulcolax and Senokot S. 11. Chronic kidney disease-III: Monitor BMP. Creatinine appears mildly elevated from baseline (1.5). 12. Dyslipidemia: Continue Atorvastatin. 13. Depression: Continue with Sertraline. 14. Gastroesophageal reflux disease: Continue with Omeprazole. 15. Benign prostatic hyperplasia: Continue Flomax. DISPOSITION: Pending CXR. Started Clindamycin and Bacid. Pending discharge in the next 24 hours. [facility] Vital Signs Date Time Temp Pulse Resp B/P (MAP) Pulse Ox O2 Delivery O2 Flow Rate FiO2 07/02/17 04:00 98.5 80 18 144/66 (92) 91 Room Air 06/29/17 08:00 2.0 Laboratory Data 24H LABS Laboratory Tests 2 07/01/17 11:44: Bedside Glucose (Misc Panel) 175H 07/01/17 16:27: Bedside Glucose (Misc Panel) 234H 07/01/17 20:29: Bedside Glucose (Misc Panel) 282H 07/02/17 05:28: Immature Granulocyte % (Auto) 0.4H, White Blood Count 13.3H, Red Blood Count 3.36L, Hemoglobin 9.9L, Hematocrit 29.8L, Mean Corpuscular Volume 88.7, Mean Corpuscular Hemoglobin 29.5, Mean Corpuscular Hemoglobin Concent 33.2, Red Cell Distribution Width 15.2H, Platelet Count 198, Neutrophils (%) (Auto) 82.4H, Lymphocytes (%) (Auto) 7.9L, Monocytes (%) (Auto) 7.4H, Eosinophils (%) (Auto) 1.7, Basophils (%) (Auto) 0.2, Neutrophils # (Auto) 11.0H, Lymphocytes # (Auto) 1.1L, Monocytes # (Auto) 1.0H, Eosinophils # (Auto) 0.2, Basophils # (Auto) 0.0 , Immature Granulocyte # (Auto) 0.1H, Nucleated Red Blood Cells % (auto) 0.0, Anion Gap 7L, Glomerular Filtration Rate 38.0, Blood Urea Nitrogen 30H, Creatinine 1.80H, Sodium Level 140, Potassium Level 4.1, Chloride Level 100, Carbon Dioxide Level 33H, Calcium Level 8.5L CBC/BMP Laboratory Tests 07/02/17 05:28 Red Blood Count 3.36 L, Mean Corpuscular Volume 88.7, Mean Corpuscular Hemoglobin 29.5, Mean Corpuscular Hemoglobin Concent 33.2, Red Cell Distribution Width 15.2 H, Neutrophils (%) (Auto) 82.4 H, Lymphocytes (%) (Auto ) 7.9 L, Monocytes (%) (Auto) 7.4 H, Eosinophils (%) (Auto) 1.7, Basophils (%) ( Auto) 0.2, Neutrophils # (Auto) 11.0 H, Lymphocytes # (Auto) 1.1 L, Monocytes # (Auto) 1.0 H, Eosinophils # (Auto) 0.2, Basophils # (Auto) 0.0, Calcium Level 8.5 L Microbiology Microbiology 06/28/17 Blood Culture - Preliminary, Resulted No Growth after 72 hours. All specime... 06/28/17 Blood Culture - Preliminary, Resulted No Growth after 72 hours. All specime... 06/28/17 Gram Stain - Final, Complete 06/28/17 Sputum Culture - Final, Complete Staphylococcus Aureus 06/28/17 Influenza Virus Type A Antigen - Final, Complete 06/28/17 Influenza Virus Type B Antigen - Final, Complete DONALD LYON DO Jul 02, 2017 07:42
[2017-07-02] MEDS ORDERED: CLINDAMYCIN 600 MG in APPROPRIATE DILUENT 1 EA IV SCH (08:00)
[2017-07-02 08:19] VITALS: BP 145/83
--- NOTE | 2017-07-02 08:22 | REP ---
Clinical: Leukocytosis . Comparison: 06/28/2017 . Findings: The mediastinum and cardiac silhouette are stable and within normal limits for portable technique. The lung martinez are clear without acute consolidation, effusion, or pneumothorax. Skeletal structures are intact. Impression: No acute cardiopulmonary process appreciated. Signed by Easton Ba MD 07/02/2017 08:14 A
[2017-07-02] MEDS: ASCORBIC ACID 500 MG TAB PO SCH (08:58)
[2017-07-02] MEDS: RAMIPRIL 5 MG CAP PO SCH (08:58)
[2017-07-02] MEDS: LACTOBACILLUS ACIDOPHILUS CAP (BACID) PO SCH ×2 (08:58→12:18)
[2017-07-02] MEDS: FUROSEMIDE 40 MG/4 ML VIAL (J1940) IV SCH ×2 (08:58→17:54)
[2017-07-02] MEDS: OMEPRAZOLE 20 MG CAP PO SCH (08:58)
[2017-07-02] MEDS: BISACODYL 5 MG TAB PO SCH (08:58)
[2017-07-02] MEDS: VITAMIN D 1,000 INTERNATIONAL UNITS TABLET PO SCH (08:59)
[2017-07-02] MEDS: POLYVINYL ALCOHOL OPHTH SOLN 15 ML(LIQUITEARS) OU SCH ×2 (08:59→20:40)
[2017-07-02] MEDS: SERTRALINE HCL 50 MG TAB PO SCH (08:59)
[2017-07-02] MEDS: SENOKOT S TAB PO SCH (08:59)
[2017-07-02] MEDS: amLODIPine 5 MG TAB PO SCH (08:59)
[2017-07-02] MEDS: APIXABAN 2.5 MG TAB (ELIQUIS) PO SCH ×2 (08:59→20:40)
[2017-07-02] MEDS: FERROUS GLUCONATE 324 MG TAB PO SCH (08:59)
[2017-07-02] MEDS: ATORVASTATIN 10 MG TAB PO SCH (08:59)
[2017-07-02 11:35] VITALS: BP 135/70
--- NOTE | 2017-07-02 13:23 | DS.PDOC ---
Discharge Summary General Date of Admission Jun 28, 2017 at 14:39 Date of Discharge 07/03/2017 Attending Physician: ROBERTA ESPOSITO MD Specialist/Consultants Involve Primary care provider: [facility] Discharge Summary PROCEDURES PERFORMED DURING STAY: None. ADMITTING DIAGNOSES: 1. Exacerbation of congestive heart failure. 2. Hypertensive urgency. SECONDARY DIAGNOSES: 1. Diabetes mellitus. 2. Benign prostatic hyperplasia. 3. Anemia of chronic disease. 4. Depression. 5. Chronic kidney disease, stage III. DISCHARGE DIAGNOSES: 1. Exacerbation of congestive heart failure. 2. Urinary retention. 3. Right shoulder pain. COMPLICATIONS/CHIEF COMPLAINT: Chf(Congestive Heart Failure). HISTORY OF PRESENT ILLNESS: Mr. Murcia is a 87-year-old male who presents to [facility]'s Emergency Department with increasing shortness of breath. Past medical history is significant for: hypertension, atrial fibrillation, diastolic congestive heart failure, benign prostatic hyperplasia, anemia of chronic disease, chronic kidney disease-III, coronary artery disease with myocardial infarction, diabetes mellitus, dyslipidemia, depression, severe pulmonary hypertension, vitamin B12 deficiency, allergies, gastroesophageal reflux disease. Patient states that he has been developing worsening shortness of breath with ambulation. At baseline patient is able to ambulate a city block without significant shortness of breath. Associated with the increasing shortness of breath the patient also admits to tiredness without weakness, dizziness, lightheadedness, loss of consciousness, or fall. States that he is "can't breath." These symptoms have been ongoing and progressing over the last month and a half. Symptoms improve with rest. Denies oxygen use at home. Also admits to wheezing that has been ongoing for three weeks. Has also noticed increased swelling of his bilateral lower extremities. Denies any prior episodes. Denies orthopnea or PND. Further denies fever, headache, vision changes, chest pain, skin lesions/rashes, epistaxis, hematemesis, hemoptysis, melena, hematochezia. Admits to bilateral knee pain that is worse with ambulation with the feeling of his knees "giving out", fingertip numbness, nerve pain in his feet, nocturia, dry eyes. Emergency Department evaluation included labs, which revealed low oximetry at 90 % on room air, hypertensive urgency, elevated troponin, respiratory acidosis on ABG, and bibasilar infiltrates/atelectasis on chest x-ray, elevated creatinine secondary to chronic kidney disease, and negative for DVT in the left lower extremity. Hospitalist service was consulted for further medical management.. HOSPITAL COURSE: Patient was admitted and started on Lasix, Duonebs, and Robitussion. No antibiotics were indicated. Recommended that patient follow a fluid restriction of approximately 1.5L. CT chest without contrast was obtained and resulted below. Initially hypertensive urgency on admission and managed with home medications and Nitropaste and Hydralazine IV. Blood pressure normalized during hospitalization. Noted to have elevated troponins; however, this is chronic and patient was asymptomatic. Continued patient's Eliquis for atrial fibrillation. Diabetes managed with sliding scale insulin, fingersticks AC/HS, and hypoglycemic protocol. Patient was placed on a consistent carbohydrate diet. Continued with Vitamin B12 supplementation and started on Ferrous Gluconate and bowel regimen for anemia of chronic disease. Renal function was monitored and remained stable. Continued with Atorvastatin for dyslipidemia and Sertraline for depression. Remained on Omeprazole for GERD and Flomax for BPH. Patient developed some urinary retention for which a Torres catheter was inserted. Attempted a urinary voiding trial; however, it was unsuccessful and Torres catheter needed to be reinserted. Teaching was provided regarding Torres catheter management prior to discharge. Leukocytosis developed before discharge with positive sputum for MSSA. Started on Clindamycin and Bacid, but chest x-ray did not reveal anything significant, so antibiotics and Bacid were discontinued. Sputum positive culture likely colonization. Small IV infiltrate noted on left forearm for which a warm compress was applied. Continued right shoulder pain for which an x-ray was obtained. Physical therapy evaluated patient and determined him safe for discharge home. Patient improved clinically throughout admission and was stable at time of discharge. DISCHARGE MEDICATIONS: Please see below. ALLERGIES: Please see below. PHYSICAL EXAMINATION ON DISCHARGE: VITAL SIGNS: Please see below. GENERAL: Elderly male, wearing hospital gown, laying in bed, hearing aides not in place this morning, no acute distress Eye Exam: PERRL, Conjunctiva & lids normal, EOMI ENT Exam: Atraumatic, mucous membranes moist/pink, pharynx normal, tongue midline, nares patent Neck Exam: Supple, trachea midline, no lymphadenopathy Chest Exam: Clear to auscultation, but diminished breath sounds in the right lower lobe, adequate inspiratory and expiratory airway excursion, no wheeze, rhonchi, crackles Heart Exam: Irregularly irregular heart rate and rhythm, no murmur, rub, click Abdomen Exam: Diminished bowel sounds, soft, non-tender, non-distended, no organomegaly Extremity Exam: +1 peripheral edema appreciated in lower extremities bilaterally, knee high compression, small erythematous infiltrate and edema noted at IV site on left forearm Skin Exam: No rash, lesion Neuro Exam: CN II-XII grossly intact LABORATORY DATA: Please see below. IMAGING: Right lower extremity duplex ultrasound IMPRESSION: No evidence for deep venous thrombosis. Portable chest x-ray IMPRESSION: Acute bibasilar infiltrates/atelectasis and small pleural effusions. CT chest without contrast IMPRESSION: Moderate bilateral pleural effusions with lower lobe consolidations (right greater than left). Portable chest x-ray IMPRESSION: No acute cardiopulmonary process appreciated. PROGNOSIS: Stable. ACTIVITY: Walk with walker. DIET: No added salt. DISCHARGE PLAN: Problem: Managing health at home Goal: Improve health & wellness Instructions: Follow DC Instruction DISPOSITION: Home. DISCHARGE INSTRUCTIONS: 1. Resume home medications. 2. Follow-up with Shelley SAMPSON on 07/05/17 at 1:30PM. ITEMS TO FOLLOWUP ON ON OUTPATIENT: 1. Congestive heart failure. 2. Hypertensive urgency. 3. Urinary retention. 4. Right shoulder pain. DISCHARGE CONDITION: Stable. TIME SPENT ON DISCHARGE: Greater than 30 minutes. Vital Signs/I&Os Vital Signs Date Time Temp Pulse Resp B/P (MAP) Pulse Ox O2 Delivery O2 Flow Rate FiO2 07/02/17 11:45 Room Air 07/02/17 11:35 99.5 72 20 135/70 (91) 92 06/29/17 08:00 2.0 I&O- Last 24 Hours up to 6 AM 07/03/17 06:00 Intake Total 530 ml Balance 530 ml Laboratory Data Labs 24H Laboratory Tests 2 07/01/17 16:27: Bedside Glucose (Misc Panel) 234H 07/01/17 20:29: Bedside Glucose (Misc Panel) 282H 07/02/17 05:28: Immature Granulocyte % (Auto) 0.4H, White Blood Count 13.3H, Red Blood Count 3.36L, Hemoglobin 9.9L, Hematocrit 29.8L, Mean Corpuscular Volume 88.7, Mean Corpuscular Hemoglobin 29.5, Mean Corpuscular Hemoglobin Concent 33.2, Red Cell Distribution Width 15.2H, Platelet Count 198, Neutrophils (%) (Auto) 82.4H, Lymphocytes (%) (Auto) 7.9L, Monocytes (%) (Auto) 7.4H, Eosinophils (%) (Auto) 1.7, Basophils (%) (Auto) 0.2, Neutrophils # (Auto) 11.0H, Lymphocytes # (Auto) 1.1L, Monocytes # (Auto) 1.0H, Eosinophils # (Auto) 0.2, Basophils # (Auto) 0.0 , Immature Granulocyte # (Auto) 0.1H, Nucleated Red Blood Cells % (auto) 0.0, Anion Gap 7L, Glomerular Filtration Rate 38.0, Blood Urea Nitrogen 30H, Creatinine 1.80H, Sodium Level 140, Potassium Level 4.1, Chloride Level 100, Carbon Dioxide Level 33H, Calcium Level 8.5L CBC/BMP Laboratory Tests 07/02/17 05:28 Red Blood Count 3.36 L, Mean Corpuscular Volume 88.7, Mean Corpuscular Hemoglobin 29.5, Mean Corpuscular Hemoglobin Concent 33.2, Red Cell Distribution Width 15.2 H, Neutrophils (%) (Auto) 82.4 H, Lymphocytes (%) (Auto ) 7.9 L, Monocytes (%) (Auto) 7.4 H, Eosinophils (%) (Auto) 1.7, Basophils (%) ( Auto) 0.2, Neutrophils # (Auto) 11.0 H, Lymphocytes # (Auto) 1.1 L, Monocytes # (Auto) 1.0 H, Eosinophils # (Auto) 0.2, Basophils # (Auto) 0.0, Calcium Level 8.5 L FSBS Laboratory Tests Test 07/01/17 16:27 07/01/17 20:29 Range/Units Bedside Glucose (Misc Panel) 234 282 83-110 MG/DL Microbiology Microbiology 06/28/17 Blood Culture - Preliminary, Resulted No Growth after 72 hours. All specime... 06/28/17 Blood Culture - Preliminary, Resulted No Growth after 72 hours. All specime... 06/28/17 Gram Stain - Final, Complete 06/28/17 Sputum Culture - Final, Complete Staphylococcus Aureus 06/28/17 Influenza Virus Type A Antigen - Final, Complete 06/28/17 Influenza Virus Type B Antigen - Final, Complete Discharge Medications Scheduled (Preservision Areds 2) 1 Cap Cap, 1 CAP PO BID, (Reported) Amlodipine Besylate (Amlodipine Besylate) 5 Mg Tab, 5 MG PO DAILY, (Reported) Apixaban Base (Eliquis) 2.5 Mg Tab, 2.5 MG PO BID, (Reported) Artificial Tears (Artificial Tears) 1.4 % Isabella, 1 DROP OU BID, (Reported) Atorvastatin Calcium (Atorvastatin Calcium) 20 Mg Tab, 10 MG PO DAILY, (Reported ) Cholecalciferol (Vitamin D) 1,000 Unit Tab, 1,000 UNIT PO DAILY, (Reported) Cyanocobalamin (B-12) 2,500 Mcg Tab, 2,500 MCG PO DAILY, (Reported) Furosemide (Lasix) 20 Mg Tab, 20 MG PO DAILY, (Reported) Glipizide (Glipizide) 10 Mg Tab, 10 MG PO DAILY, (Reported) Linagliptin Base (Tradjenta) 5 Mg Tab, 5 MG PO DAILY, (Reported) Omeprazole (Omeprazole) 20 Mg Cap, 20 MG PO DAILY, (Reported) Ramipril (Ramipril) 10 Mg Cap, 10 MG PO DAILY, (Reported) Sertraline Hcl (Sertraline HCl) 50 Mg Tab, 25 MG PO DAILY, (Reported) Tamsulosin Hydrochloride (Flomax) 0.4 Mg Cap, 0.4 MG PO QPM, (Reported) Scheduled PRN (Tylenol) 325 Mg Cap, 325 MG PO for HEADACHE, (Reported) Aluminum/Magnesium/Simeth (Maalox Advanced Maximum S 400-400-40 mg/5Ml) 1 Allie Allie, 30 ML PO PRN PRN for CONSTIPATION, (Reported) Guaifenesin (Guaifenesin) 100 Mg/5 Ml Syp, 10 ML PO Q4H PRN for COUGH, (Reported ) Loperamide HCl (Loperamide A-D) 2 Mg Tab, 2 MG PO PRN PRN for AFTER EACH LOOSE STOOL, (Reported) Allergies Coded Allergies: Aspirin (Verified Allergy, Unknown, unknown, 04/06/17) Penicillins (Verified Allergy, Unknown, unknown, 04/06/17) DONALD LYON DO Jul 02, 2017 13:24
[2017-07-02 15:35] VITALS: BP 137/67
[2017-07-02] MEDS: TAMSULOSIN 0.4 MG CAP PO SCH (20:40)
[2017-07-02 22:00] VITALS: BP 130/69
[2017-07-03] MEDS: IPRATROPIUM 0.5MG/ALBUTEROL 2.5MG INH SOL UD 3ML (DUONEB)(J7620) NEB SCH ×2 (01:01→07:23)
[2017-07-03 05:38] LABS: BASO % 0.2 % (0.0-1.0); EOS # 0.2 10^3/uL (0.0-0.50); EOS % 1.5 % (0.0-3.0); IMMATURE GRANULOCYTE % 0.2 % (0-0); LYMPH # 0.9 10^3/uL (1.5-4.5); LYMPH % 6.9 % (24.0-44.0); MEAN CORPUSCULAR HEMOGLOBIN 29.1 pg (27.0-33.0); MEAN CORPUSCULAR HGB CONC 32.8 g/dl (32.0-36.5); MEAN CORPUSCULAR VOLUME 88.6 fl (80.0-96.0); MONO % 7.1 % (0.0-5.0); NEUTROPHILS # 11.4 10^3/uL (1.8-7.7); NEUTROPHILS % 84.1 % (36.0-66.0); PLATELET COUNT, AUTOMATED 200 10^3/uL (150-450); RED CELL DISTRIBUTION WIDTH 14.7 % (11.5-14.5); WHITE BLOOD COUNT 13.6 10^3/uL (4.0-10.0)
[2017-07-03 05:56] LABS: CALCIUM LEVEL 8.3 MG/DL (8.8-10.2); CREATININE FOR GFR 1.8 MG/DL (0.70-1.30); MAGNESIUM LEVEL 1.9 MG/DL (1.8-2.4); POTASSIUM SERUM 4.1 MEQ/L (3.5-5.1)
[2017-07-03] MEDS: SLF 3 ML SYR IV SCH (06:06)
[2017-07-03 07:30] VITALS: BP 153/83
[2017-07-03] MEDS: APIXABAN 2.5 MG TAB (ELIQUIS) PO SCH (08:36)
[2017-07-03] MEDS: BISACODYL 5 MG TAB PO SCH (08:36)
[2017-07-03] MEDS: SERTRALINE HCL 50 MG TAB PO SCH (08:36)
[2017-07-03] MEDS: ASCORBIC ACID 500 MG TAB PO SCH (08:36)
[2017-07-03] MEDS: ATORVASTATIN 10 MG TAB PO SCH (08:36)
[2017-07-03] MEDS: VITAMIN D 1,000 INTERNATIONAL UNITS TABLET PO SCH (08:36)
[2017-07-03] MEDS: HumaLOG INSULIN (NovoLOG) PER UNIT SC SCH (08:37)
[2017-07-03] MEDS: amLODIPine 5 MG TAB PO SCH (08:37)
[2017-07-03] MEDS: FUROSEMIDE 40 MG/4 ML VIAL (J1940) IV SCH (08:37)
[2017-07-03 08:38] VITALS: BP 153/83
[2017-07-03] MEDS: OMEPRAZOLE 20 MG CAP PO SCH (08:38)
[2017-07-03] MEDS: FERROUS GLUCONATE 324 MG TAB PO SCH (08:38)
[2017-07-03] MEDS: POLYVINYL ALCOHOL OPHTH SOLN 15 ML(LIQUITEARS) OU SCH (08:38)
[2017-07-03] MEDS: RAMIPRIL 5 MG CAP PO SCH (08:38)
--- NOTE | 2017-07-03 09:18 | REP ---
Clinical: Right shoulder pain. Technique: Internal rotation, external rotation, and Y view. Findings: Age-related osteopenia and advanced osteoarthritic degenerative changes are appreciated. Findings include cortical irregularity and spurring at the acromioclavicular joint, chondrocalcinosis, complete obliteration of the subacromial space, and spurring/osteophyte along the inferior margin of the glenoid rim. Humeral head demonstrates cortical irregularity but is incompletely evaluated due to overlying opacities. Surrounding soft tissues grossly unremarkable. Impression: Osteopenia and advanced osteoarthritic degenerative changes. Signed by Easton Ba MD 07/03/2017 09:09 A
== END 2017-07-03 11:44 | disposition home health service (06) | DRG 291 ==
LOC: M ED 11:40 → M ED INP 14:39 → M PCU 17:34
PROVIDERS: ADMIT Hospitalist; ATTEND General Practice
DX: I13.0 Hypertensive heart and chronic kidney disease with heart failure and stage 1 through stage 4 chronic kidney disease, or unspecified chronic kidney disease (principal); I50.33 Acute on chronic diastolic (congestive) heart failure; E87.2 Acidosis; I16.0 Hypertensive urgency; E11.9 Type 2 diabetes mellitus without complications; N40.0 Benign prostatic hyperplasia without lower urinary tract symptoms; N18.3 Chronic kidney disease, stage 3 (moderate); F32.9 Major depressive disorder, single episode, unspecified; D64.9 Anemia, unspecified; I48.91 Unspecified atrial fibrillation; I25.10 Atherosclerotic heart disease of native coronary artery without angina pectoris; I25.2 Old myocardial infarction; E78.5 Hyperlipidemia, unspecified; K21.9 Gastro-esophageal reflux disease without esophagitis; E53.8 Deficiency of other specified B group vitamins; R33.9 Retention of urine, unspecified; Z79.899 Other long term (current) drug therapy; Z88.6 Allergy status to analgesic agent; Z88.0 Allergy status to penicillin; I27.20 Pulmonary hypertension, unspecified; M25.511 Pain in right shoulder

== ENCOUNTER 2017-12-08 12:44 | Inpatient (IN) | payer MEDICARE, OTHER ==
[2017-12-08] MEDS: ONDANSETRON 4MG/2ML VIAL (J2405) IV (14:20)
[2017-12-08 14:33] LABS: BASO % 0.2 % (0.0-1.0); EOS # 0.2 10^3/uL (0.0-0.50); EOS % 1.6 % (0.0-3.0); HEMATOCRIT 32.7 % (42.0-52.0); HEMOGLOBIN 10.8 g/dl (13.5-17.5); IMMATURE GRANULOCYTE % 0.4 % (0-3.0); LYMPH # 0.9 10^3/uL (1.5-4.5); LYMPH % 6.8 % (24.0-44.0); MEAN CORPUSCULAR HEMOGLOBIN 29.7 pg (27.0-33.0); MEAN CORPUSCULAR VOLUME 89.8 fl (80.0-96.0); MONO # 0.6 10^3/uL (0.0-0.8); MONO % 4.2 % (0.0-5.0); NEUTROPHILS # 11.5 10^3/uL (1.8-7.7); NEUTROPHILS % 86.8 % (36.0-66.0); PLATELET COUNT, AUTOMATED 196 10^3/uL (150-450); RED BLOOD COUNT 3.64 10^6/uL (4.30-6.10); RED CELL DISTRIBUTION WIDTH 13.4 % (11.5-14.5); WHITE BLOOD COUNT 13.3 10^3/uL (4.0-10.0)
[2017-12-08 14:40] LABS: AMORPHOUS SEDIMENT RFX SMALL (NEGATIVE); KETONE, URINE AUTO RFX NEGATIVE (NEGATIVE); NITRITE, URINE AUTO RFX NEGATIVE (NEGATIVE); RBC, URINE AUTO RFX 100 /HPF (0-3); SPECIFIC GRAVITY UR AUTO RFX 1.003 (1.002-1.035); SQUAM EPITHELIAL CELL UR AURFX 0 /HPF (0-6); WBC, URINE AUTO RFX 4 /HPF (0-3)
[2017-12-08 14:41] LABS: LEUKOCYTE ESTERASE UR AUTO RFX TRACE (NEGATIVE)
[2017-12-08] MEDS: amLODIPine 5 MG TAB PO (14:51)
[2017-12-08 14:57] LABS: ALKALINE PHOSPHATASE 111 U/L (45-117); ALT/SGPT 23 U/L (12-78); ANION GAP 9 MEQ/L (8-16); AST/SGOT 20 U/L (7-37); BILIRUBIN,DIRECT 0.1 MG/DL (0.0-0.2); BILIRUBIN,TOTAL 0.6 MG/DL (0.2-1.0); BLOOD UREA NITROGEN 36 MG/DL (7-18); CALCIUM LEVEL 9.1 MG/DL (8.8-10.2); CARBON DIOXIDE LEVEL 26 MEQ/L (21-32); CHLORIDE LEVEL 101 MEQ/L (98-107); CREATININE FOR GFR 2.56 MG/DL (0.70-1.30); GLOMERULAR FILTRATION RATE 25.3 (>35); GLUCOSE, FASTING 194 MG/DL (70-100); LIPASE 211 U/L (73-393); POTASSIUM SERUM 4.2 MEQ/L (3.5-5.1); SODIUM LEVEL 136 MEQ/L (136-145)
[2017-12-08] MEDS: NS 1,000 ML IV (16:32)
[2017-12-08] MEDS ORDERED: ACETAMINOPHEN TAB 650MG DOSE (2X325MG) PO (17:30)
[2017-12-08] MEDS ORDERED: ONDANSETRON 4MG/2ML VIAL (J2405) IV (17:30)
[2017-12-08] MEDS ORDERED: DEXTROSE 50% 50 ML SYRINGE IV (18:15)
[2017-12-08] MEDS ORDERED: GLUCAGON FOR INJ 1 MG VIAL (J1610) SC (18:15)
[2017-12-08] MEDS ORDERED: POLYVINYL ALCOHOL OPHTH SOLN 15 ML(LIQUITEARS) OU (18:15)
[2017-12-08] MEDS ORDERED: GLUCOSE 4 GM CHEW TABLET PO (18:15)
[2017-12-08] MEDS ORDERED: guaiFENesin DM LIQ 10ML UD PO (18:15)
[2017-12-08] MEDS: APIXABAN 2.5 MG TAB (ELIQUIS) PO (23:44)
[2017-12-08] MEDS: SENOKOT S TAB PO (23:44)
[2017-12-08] MEDS: CARVedilol 6.25 MG TAB PO (23:45)
[2017-12-08] MEDS: HumaLOG INSULIN (NovoLOG) PER UNIT SC (23:45)
[2017-12-09 01:56] LABS: BEDSIDE GLUCOSE 200 MG/DL (83-110)
[2017-12-09 05:54] LABS: HEMATOCRIT 27.6 % (42.0-52.0); HEMOGLOBIN 9.1 g/dl (13.5-17.5); MEAN CORPUSCULAR HEMOGLOBIN 29.8 pg (27.0-33.0); MEAN CORPUSCULAR VOLUME 90.5 fl (80.0-96.0); PLATELET COUNT, AUTOMATED 164 10^3/uL (150-450); RED BLOOD COUNT 3.05 10^6/uL (4.30-6.10); RED CELL DISTRIBUTION WIDTH 13.8 % (11.5-14.5); WHITE BLOOD COUNT 10.7 10^3/uL (4.0-10.0)
[2017-12-09 06:03] LABS: ANION GAP 6 MEQ/L (8-16); BLOOD UREA NITROGEN 41 MG/DL (7-18); CALCIUM LEVEL 8.6 MG/DL (8.8-10.2); CARBON DIOXIDE LEVEL 28 MEQ/L (21-32); CHLORIDE LEVEL 106 MEQ/L (98-107); CREATININE FOR GFR 2.29 MG/DL (0.70-1.30); GLOMERULAR FILTRATION RATE 28.8 (>35); GLUCOSE, FASTING 123 MG/DL (70-100); MAGNESIUM LEVEL 2.2 MG/DL (1.8-2.4); POTASSIUM SERUM 4.7 MEQ/L (3.5-5.1); SODIUM LEVEL 140 MEQ/L (136-145)
[2017-12-09 06:17] LABS: KETONE, URINE AUTO RFX NEGATIVE (NEGATIVE); MUCUS, URINE RFX SMALL (NEGATIVE); NITRITE, URINE AUTO RFX NEGATIVE (NEGATIVE); RBC, URINE AUTO RFX 7 /HPF (0-3); SQUAM EPITHELIAL CELL UR AURFX 0 /HPF (0-6)
[2017-12-09 08:08] LABS: LEUKOCYTE ESTERASE UR AUTO RFX 3+ (NEGATIVE); WBC, URINE AUTO RFX 79 /HPF (0-3)
[2017-12-09] MEDS: SENOKOT S TAB PO ×3 (10:12→22:09)
[2017-12-09] MEDS: NS 1,000 ML IV (10:12)
[2017-12-09] MEDS: APIXABAN 2.5 MG TAB (ELIQUIS) PO ×2 (10:13→22:09)
[2017-12-09] MEDS: CYANOCOBALAMIN 250 MCG TABLET PO (10:13)
[2017-12-09] MEDS: FERROUS GLUCONATE 324 MG TAB PO (10:13)
[2017-12-09] MEDS: VITAMIN D 1,000 INTERNATIONAL UNITS TABLET PO (10:13)
[2017-12-09] MEDS: MAGNESIUM OXIDE 400 MG TAB (MAG-OX) PO (10:13)
[2017-12-09] MEDS: SERTRALINE HCL 25 MG TABLET PO (10:13)
[2017-12-09] MEDS: ATORVASTATIN 10 MG TAB PO (10:13)
[2017-12-09] MEDS: OMEPRAZOLE 20 MG CAP PO (10:13)
[2017-12-09] MEDS: HumaLOG INSULIN (NovoLOG) PER UNIT SC ×4 (10:14→21:53)
[2017-12-09] MEDS: amLODIPine 5 MG TAB PO (10:15)
[2017-12-09] MEDS: CARVedilol 6.25 MG TAB PO ×2 (10:15→22:08)
[2017-12-09 21:04] LABS: BEDSIDE GLUCOSE 72 MG/DL (83-110)
[2017-12-10] MEDS: NS 1,000 ML IV (02:36)
[2017-12-10 02:54] LABS: BEDSIDE GLUCOSE 213 MG/DL (83-110)
[2017-12-10 02:54] LABS: BEDSIDE GLUCOSE 193 MG/DL (83-110)
[2017-12-10 06:11] LABS: HEMATOCRIT 28.5 % (42.0-52.0); HEMOGLOBIN 9.4 g/dl (13.5-17.5); MEAN CORPUSCULAR HEMOGLOBIN 30.1 pg (27.0-33.0); MEAN CORPUSCULAR VOLUME 91.3 fl (80.0-96.0); PLATELET COUNT, AUTOMATED 168 10^3/uL (150-450); RED BLOOD COUNT 3.12 10^6/uL (4.30-6.10); RED CELL DISTRIBUTION WIDTH 13.8 % (11.5-14.5); WHITE BLOOD COUNT 9.6 10^3/uL (4.0-10.0)
[2017-12-10 06:39] LABS: ANION GAP 4 MEQ/L (8-16); BLOOD UREA NITROGEN 43 MG/DL (7-18); CALCIUM LEVEL 8.5 MG/DL (8.8-10.2); CARBON DIOXIDE LEVEL 29 MEQ/L (21-32); CHLORIDE LEVEL 111 MEQ/L (98-107); GLOMERULAR FILTRATION RATE 35.7 (>35); GLUCOSE, FASTING 154 MG/DL (70-100); MAGNESIUM LEVEL 2.3 MG/DL (1.8-2.4); POTASSIUM SERUM 5.1 MEQ/L (3.5-5.1); SODIUM LEVEL 144 MEQ/L (136-145)
[2017-12-10] MEDS: CYANOCOBALAMIN 250 MCG TABLET PO (08:08)
[2017-12-10] MEDS: SENOKOT S TAB PO (08:08)
[2017-12-10] MEDS: MAGNESIUM OXIDE 400 MG TAB (MAG-OX) PO (08:08)
[2017-12-10] MEDS: HumaLOG INSULIN (NovoLOG) PER UNIT SC ×2 (08:09→12:00)
[2017-12-10] MEDS: SERTRALINE HCL 25 MG TABLET PO (08:09)
[2017-12-10] MEDS: OMEPRAZOLE 20 MG CAP PO (08:09)
[2017-12-10] MEDS: amLODIPine 5 MG TAB PO (08:09)
[2017-12-10] MEDS: ATORVASTATIN 10 MG TAB PO (08:09)
[2017-12-10] MEDS: APIXABAN 2.5 MG TAB (ELIQUIS) PO (08:09)
[2017-12-10] MEDS: VITAMIN D 1,000 INTERNATIONAL UNITS TABLET PO (08:09)
[2017-12-10] MEDS: FERROUS GLUCONATE 324 MG TAB PO (08:10)
[2017-12-10] MEDS: CARVedilol 6.25 MG TAB PO (08:10)
[2017-12-10 08:24] LABS: CHLORIDE,RANDOM URINE 126 MEQ/L; CREATININE,RANDOM URINE 26.1 MG/DL; POTASSIUM RANDOM URINE 31.4 MEQ/L; SODIUM,RANDOM URINE 115 MEQ/L
[2017-12-10 11:42] LABS: OSMOLALITY URINE 409 MOSM/KG (500-800)
[2017-12-10 12:10] LABS: BEDSIDE GLUCOSE 185 MG/DL (83-110)
== END 2017-12-10 12:57 | disposition home or self-care (01) | DRG 699 ==
LOC: M ED 12:44 → M ED INP 17:20 → M MSPAV 18:43
DX: T83.011A Breakdown (mechanical) of indwelling urethral catheter, initial encounter (principal); N17.9 Acute kidney failure, unspecified; I50.32 Chronic diastolic (congestive) heart failure; I13.0 Hypertensive heart and chronic kidney disease with heart failure and stage 1 through stage 4 chronic kidney disease, or unspecified chronic kidney disease; K21.9 Gastro-esophageal reflux disease without esophagitis; I27.20 Pulmonary hypertension, unspecified; E78.5 Hyperlipidemia, unspecified; F32.9 Major depressive disorder, single episode, unspecified; E11.9 Type 2 diabetes mellitus without complications; I48.91 Unspecified atrial fibrillation; I25.10 Atherosclerotic heart disease of native coronary artery without angina pectoris; N40.0 Benign prostatic hyperplasia without lower urinary tract symptoms; K57.30 Diverticulosis of large intestine without perforation or abscess without bleeding; N18.3 Chronic kidney disease, stage 3 (moderate); D63.1 Anemia in chronic kidney disease; I25.2 Old myocardial infarction; E53.8 Deficiency of other specified B group vitamins; Z79.899 Other long term (current) drug therapy; Z88.0 Allergy status to penicillin; Z88.6 Allergy status to analgesic agent; Z79.01 Long term (current) use of anticoagulants; Y84.6 Urinary catheterization as the cause of abnormal reaction of the patient, or of later complication, without mention of misadventure at the time of the procedure